=== PATIENT | female | born 1945 | race Caucasian/White ===

== ENCOUNTER 2016-06-19 14:09 | Inpatient (IN) | payer MEDICARE, OTHER ==
--- NOTE | ~2016-06-19 | OP ---
Record Of Operation [facility] [address] [place]. [address] NAME: SUZI STARKEY : 41 STATUS : ADM IN [facility]#: [id number] AGE: 70 ADM/REG DATE : 06/19/16 MR#: [id number] REPORT SERV DATE: 06/23/16 DICTATED BY: ÁNGEL PANTOJA DATE: 06/23/16 REPORT STATUS : Draft TRANSCRIBED BY: MODL DATE: 06/23/16 DATE OF PROCEDURE: 06/22/2016 PREOPERATIVE DIAGNOSIS: Right hip periprosthetic femur fracture below total hip arthroplasty. POSTOPERATIVE DIAGNOSIS: Right hip periprosthetic femur fracture below total hip arthroplasty. PROCEDURE: ORIF of right femur fracture. SURGEON: Lupe Pantoja M.D. MILLSTONE CLEANER: See chart. DESCRIPTION OF PROCEDURE: The patient was taken to the operating room and placed supine on the table in normal fashion without an incident. General anesthetic was induced per the anesthesiologist. The patient was carefully positioned, padded, prepped, and draped in normal sterile fashion. Sharp dissection was made through a straight lateral incision with electrocautery through the fat. The IT band was split in line with its fibers. The vastus was split in line with its fibers down the proximal and mid shaft of the femur to expose the fracture. It was defined in its extents proximally and distally. Five cables were placed staying directly on the bone proximally and these were provisionally tightened. A [place] long plate was chosen. Multiple screws were placed in the distal shaft while holding the fracture as anatomically reduced as possible with reduction forceps. These were placed in a standard fashion with drill depth gauge and self-tapping screw placement. All five cables were tightened, crimped, and cut short. Locking screws were placed in the short proximal holes. This appeared to give excellent fixation. They also packed after irrigation around the fracture with a deep mineralized-type bone matrix. The wound was then irrigated, closed, and dressed sterilely. The patient was awakened and taken to the postanesthesia care unit without incident. COMPLICATIONS: None. SPECIMENS: None. ESTIMATED BLOOD LOSS: [place] about to be less than a liter because her edematous fluid was so significant but hard to estimate. WTB/MODL Lupe Pantoja M.D. Record Of Operation [facility] [address] [place]. [address] NAME: SUZI STARKEY : 41 STATUS : ADM IN PAT#: [id number] AGE: 70 ADM/REG DATE : 06/19/16 MR#: [id number] REPORT SERV DATE: 06/23/16 DICTATED BY: ÁNGEL PANTOJA DATE: 06/23/16 REPORT STATUS : Draft TRANSCRIBED BY: MODL DATE: 06/23/16 / [id number] CC: Chelo Hodges M.D.
--- NOTE | ~2016-06-19 | CN ---
Consultation Report [facility] [address] [place]. [address] NAME: SUZI CHOW : 41 STATUS : ADM IN [facility]#: [id number] AGE: 70 ADM/REG DATE : 06/19/16 MR#: [id number] REPORT SERV DATE: 06/20/16 DICTATED BY: VERN CORDON DATE: 06/20/16 REPORT STATUS : Draft TRANSCRIBED BY: KELVIN DATE: 06/20/16 NEPHROLOGY CONSULTATION. DATE OF CONSULTATION: 06/20/2016 REASON FOR CONSULT: Acute kidney injury with volume overload. HISTORY OF PRESENT ILLNESS: Ms. Chow is a very pleasant 70-year-old white female, who has paroxysmal atrial fibrillation, sleep apnea, and a previous right hip replacement. She was admitted yesterday after a fall at home without syncope. She suffered another right hip fracture. CT scan of the head showed no acute intracranial process and chest x-ray has shown bilateral pulmonary edema. Her BNP was 1565 and today creatinine is 1.5. Surgery was canceled because of her volume overload. Cardiology has also been consulted today. PAST MEDICAL HISTORY: 1. Insulin-dependent diabetes mellitus. 2. Paroxysmal atrial fibrillation, on chronic anticoagulation with previous ablation and cardioversion attempts. 3. Echocardiogram, 02/2016, EF 55% with no documentation of right-sided pressures and moderate diastolic dysfunction. 4. Obstructive sleep apnea with reported history of interstitial lung disease. 5. Anemia. 6. History of previous right hip replacement. 7. History of T11 and T12 kyphoplasty in 02/2016. MEDICATIONS ON ADMISSION: Bumex 1 mg p.o. b.i.d., Lantus insulin 52 units at night, Prinivil 5 mg daily, metoprolol 25 mg daily, Prilosec, potassium chloride 20 mEq b.i.d., Rythmol 300 mg t.i.d., Zoloft 100 mg b.i.d., iron, and Coumadin. FAMILY HISTORY: Noncontributory to present admission. SOCIAL HISTORY: She is a nonsmoker, single, lives in [place], and is retired. REVIEW OF SYSTEMS: Significant for fall and hip fracture, paroxysmal atrial fibrillation. Avoids NSAIDs because of her chronic Coumadin. PHYSICAL EXAMINATION: VITAL SIGNS: Temperature 98.3, pulse 81, respirations 17, blood pressure 110/52, 92% sat on 3 L per nasal cannula. GENERAL: She is a very pleasant white female. Awake, alert, oriented, and cooperative with the exam. She is in no distress, lying flat in bed. LUNGS: She has diffuse bilateral crackles and rhonchi with mild dyspnea on conversation despite oxygen per nasal cannula. Consultation Report [address] [place]. [address] NAME: SUZI CHOW : 41 STATUS : ADM IN [facility]#: [id number] AGE: 70 ADM/REG DATE : 06/19/16 MR#: [id number] REPORT SERV DATE: 06/20/16 DICTATED BY: VERN CORDON DATE: 06/20/16 REPORT STATUS : Draft TRANSCRIBED BY: KELVIN DATE: 06/20/16 HEENT: Sclerae without icterus. Conjunctivae not injected. Oropharynx is clear. JVD 8-10 cm. HEART: She has regular rate and rhythm, 2/6 murmur. No rub. ABDOMEN: Obese, soft, nontender, nondistended. Bowel sounds present throughout. EXTREMITIES: 1+ pitting bilateral lower extremity edema. NEURO: Grossly nonfocal. SKIN: Shows no rash. She has a right hip fracture. Presently not in traction. : Deferred. She has clear yellow urine in the Watkins catheter. PSYCH: Mood and affect are appropriate. LABORATORY DATA: Sodium 139, potassium 5.1, bicarb 23, BUN 47, creatinine 1.5, GFR 35 mL/minute, calcium 8.6, hemoglobin 7.9, platelets 168,000, white count 8200. INR 1.2. BNP 1565. No urinalysis has been done since admission. ASSESSMENT AND PLAN: Ms. Chow appears to have acute kidney injury. Her creatinine was 0.9 as recently as 04/10/2016. She now has pulmonary edema; recurrent right hip fracture; anemia; paroxysmal atrial fibrillation, on chronic Coumadin; insulin-dependent diabetes mellitus; sleep apnea; and diastolic dysfunction. Unfortunately, her right-sided pressures are not documented. The reason for her acute kidney injury is unclear, but may be related to a component of renal hypoperfusion due to relative hypotension. She had a blood pressure of 86/42 at 11:55 p.m. last night. Her SEMAJ inhibitor is on hold. IV Bumex q.8 hours x3 and follow response. Avoid NSAID. Hopefully can be stable for right hip surgery in the next 24 hours. We will follow closely with you and appreciate consult. LEILANI/KELVIN Vern Cordon M.D. / [id number] CC: Chelo Hodges M.D.
--- NOTE | ~2016-06-19 | DS ---
Discharge Summary [facility] [id number] [place]. [address] NAME: SUZI STARKEY : 41 STATUS : DIS IN PAT#: [id number] AGE: 70 ADM/REG DATE : 06/19/16 MR#: [id number] REPORT SERV DATE: 06/26/16 DICTATED BY: ABDI BROWN DATE: 06/26/16 REPORT STATUS : Draft TRANSCRIBED BY: MODNikolai DATE: 06/26/16 ADMISSION DATE: 06/19/2016 DISCHARGE DATE: 06/26/2016 CONDITION ON DISCHARGE: Stable. DISPOSITION: Discharged to inpatient rehab. DIAGNOSES ON DISCHARGE: 1. Status post open reduction and internal fixation of fracture below total hip arthroplasty. The patient has done well postoperatively. Dr. Esparza has done the procedure of open reduction and internal fixation. 2. History of right total hip arthroplasty and the fracture happened below the hip arthroplasty this time, which was why patient needed open reduction and internal fixation of this fracture this time. 3. Other conditions that are chronic in this patient include paroxysmal atrial fibrillation or chronic atrial fibrillation for which patient is on Coumadin, chronic diastolic heart failure, obstructive sleep apnea, on CPAP, obesity hypoventilation syndrome, diabetes mellitus, hypertension which are all stable, chronic kidney disease, stage III which is also stable. The patient also has other issues like gout, peripheral neuropathy, and morbid obesity which are all stable at this time. BRIEF HOSPITAL COURSE: The patient is a 70-year-old female patient, who was admitted with fracture below the right total hip arthroplasty. This happened when she accidentally fell. The patient was not cleared for open reduction and internal fixation for at least two days because she was in pulmonary edema from volume overload, which was multifactorial. The patient has chronic diastolic heart failure and also has chronic kidney disease. Hence probably because of acute on chronic heart failure and also acute kidney injury, the patient was volume overloaded and was in pulmonary edema and hence was not cleared for surgery for two days. Cardiology was consulted, and Nephrology was consulted, and once her creatinine came down to her baseline and once her pulmonary edema resolved with diuretics which the automotive repair technician suggested, the patient did undergo open reduction and internal fixation and did really well. On the day of discharge, the patient is very stable; however Dr. Esparza, the orthopedic surgeon, has recommended that she not bear weight on her right lower extremity for at least three months because of her morbid obesity. This is because the patient has broken her right hip second time and any weightbearing before the next 10 to 12 weeks could result in fracture again. The patient understands this and hence the need for inpatient rehab. LABORATORY DATA: I have the following labs on this patient upon discharge. The most recent CBC on 06/26/2016 shows normal WBC, hemoglobin 8.7, hematocrit 27.9, platelet count of 152. INR is 1.4. Electrolyte profile shows that her sodium is 140, potassium 4.1, BUN 29, creatinine 0.8. Other tests and labs done on this patient include a brain natriuretic peptide which came Discharge Summary [address] [place]. [address] NAME: SUZI STARKEY : 41 STATUS : DIS IN PAT#: [id number] AGE: 70 ADM/REG DATE : 06/19/16 MR#: [id number] REPORT SERV DATE: 06/26/16 DICTATED BY: ABDI BROWN DATE: 06/26/16 REPORT STATUS : Draft TRANSCRIBED BY: KELVIN DATE: 06/26/16 back extremely elevated on 06/22/2016 at 1600. However, with diuresis, BNP has definitely come down. The patient also had a 2D echocardiogram, and the results will be dictated in the following paragraphs. The patient also had a brain CT scan without contrast when she came in because she fell. The brain CT scan essentially came back normal except for a scalp hematoma which was superficial. At this time, because the scalp hematoma was superficial and she did not have any active bleeding, it was decided that the patient to be restarted on the Coumadin to keep INR between 2 and 3, 48 hours after surgery. Hence, the patient has been restarted on the Coumadin. Her echocardiogram did show normal LV size with preserved ejection fraction of 55%, but the patient did have diastolic dysfunction which was moderate and also moderately enlarged right ventricle with right ventricular failure. The patient also has mild pulmonary hypertension which are all contributing to the volume overload. DISCHARGE MEDICATION: The patient's medications upon discharge include the following. The patient is being sent home on Coumadin. The patient will be given 10 mg of Coumadin today and then, Coumadin will be reduced to 5 mg tomorrow and the day after and then the patient can go back on her regular Coumadin dose of 4 mg Sunday, Sunday, , and Sunday. I have advised for PT/INR to be checked every day for this patient. She will also continue her Bumex, but she will be taking Bumex 1 mg p.o. b.i.d. instead of 2 mg in the morning and 1 mg at night. She will continue Toprol-XL at 25 mg once a day, lisinopril 5 mg p.o. daily, Lantus insulin 52 units subcutaneously at bedtime, Zoloft 100 mg p.o. b.i.d., potassium 20 mEq p.o. b.i.d., Prilosec 20 mg once a day, Rythmol 300 mg every eight hours, and also continue iron tablets like she has been on before. Hence, I am discharging this patient to inpatient rehab. I have spent about 40 minutes in coordinating discharge care of this patient. CAHRMAINE/KELVIN Abdi Brown M.D. / [id number] CC: Chelo Hodges M.D.
--- NOTE | ~2016-06-19 | PRECARD ---
H&P [facility] [address] [place]. [address] NAME: NORMA CHOW : 41 STATUS : ADM IN [facility]#: [id number] AGE: 70 ADM/REG DATE : 06/19/16 MR#: [id number] REPORT SERV DATE: 06/20/16 DICTATED BY: CURT GARZA DATE: 06/20/16 REPORT STATUS : Draft TRANSCRIBED BY: KELVIN DATE: 06/20/16 DATE OF ADMISSION: 06/19/2016 HISTORY OF PRESENT ILLNESS: Ms. Norma Chow is a 70-year-old woman referred by the hospitalist service, because of an elevated BNP. Ms. Chow has a history of hypertension. She also has diastolic dysfunction. Her echocardiogram in 02/2016 demonstrated left ventricular ejection fraction of 55%. She had mild aortic stenosis and trace mitral regurgitation. She had diastolic dysfunction by that study. She also has a history of atrial fibrillation. She underwent radiofrequency ablation in 2010. She was admitted for right hip pain, diagnosed with a right hip fracture. She reports walking in the house, falling, and hurting the right hip. The x-ray demonstrated a nondisplaced fracture of the proximal femur. She describes dyspnea with minimal activity for the last several months. She states, she has had no change in this dyspnea over several months. She has no orthopnea or PND. The symptoms have not changed over the last few weeks. She has no chest pain. No stroke or stroke-like symptoms. She has had no bleeding. MEDICINES UPON ADMISSION: Tylenol, Bumex, insulin, lisinopril, Toprol, Prilosec, potassium, Rythmol, Zoloft, iron, warfarin. FAMILY HISTORY: Noncontributory. REVIEW OF SYSTEMS: Complete review of systems was obtained, pertinent negative and unremarkable except as noted above and below. All systems addressed. PHYSICAL EXAMINATION: VITAL SIGNS: Blood pressure is about 100/50, heart rate about 80. GENERAL: She is comfortable, flat, in no distress, in very good spirits. HEENT: No xanthelasma; lips without cyanosis. LUNGS: Clear to auscultation, no wheezes, rales or rhonchi; good breath sounds. COR: No JVD or hepatojugular reflux, no murmurs, rubs or gallops, impulse mid clavicular line without carotid or abdominal bruits; normal S1 and S2. ABDOMEN: Bowel sounds positive, normal activity, without tenderness, masses or hepatosplenomegaly. EXTREMITIES: Have mild edema. SKIN: Normal turgor. Ms: Normal muscle strength, without kyphosis/scoliosis. NEURO/PSYCH: Alert and oriented times 4, no apparent anxiety or depression. LABORATORIES: BUN is 47, creatinine 1.48, BNP 1564. Chest x-ray consistent with pulmonary H&P [address] [address] NAME: NORMA CHOW : 41 STATUS : ADM IN [facility]#: [id number] AGE: 70 ADM/REG DATE : 06/19/16 MR#: [id number] REPORT SERV DATE: 06/20/16 DICTATED BY: CURT GARZA DATE: 06/20/16 REPORT STATUS : Draft TRANSCRIBED BY: KELVIN DATE: 06/20/16 congestion. Echo in 2016 demonstrated EF of 55%. PET perfusion study in 09/2015 demonstrated no ischemia. EKG, probable sinus rhythm. Telemetry, sinus rhythm. ASSESSMENT: Ms. Chow is a 70-year-old woman with diastolic dysfunction by echocardiogram. She has normal left ventricle systolic function. She had chest x-ray that suggest pulmonary edema. Her BNP is elevated at 1564. PLAN: 1. Diuresis now, this will certainly help her rehabilitation postoperatively. 2. The hospitalist service has already consulted Nephrology as well. They also ordered a stat echocardiogram. Vitamin K was ordered for her INR preoperatively. HEMANTH/KELVIN Curt Garza M.D. / [id number] CC: Chelo Hodges M.D.
--- NOTE | ~2016-06-19 | HP ---
History And Physical [address] [place]. [address] NAME: SUZI STARKEY : 41 STATUS : ADM IN [facility]#: [id number] AGE: 70 ADM/REG DATE : 06/19/16 MR#: [id number] REPORT SERV DATE: 06/20/16 DICTATED BY: ÁNGEL PANTOJA DATE: 06/20/16 REPORT STATUS : Draft TRANSCRIBED BY: MODNikolai DATE: 06/20/16 DATE OF ADMISSION: 06/19/2016 CHIEF COMPLAINT: Right hip pain. HISTORY: This is a 70-year-old female, approximately six years status post right total hip arthroplasty by Dr. Mcgee, film injury to her right hip and has scalp hematoma. This has been worked up with a CT scan to make sure there is nothing intracranially. She denies any pain or injury elsewhere. She does have significant pain in her right thigh however. ALLERGIES: NONE. MEDICATIONS: See chart. PAST MEDICAL HISTORY: Dysrhythmia, glaucoma, presbyopia, atrial fibrillation, hypertension, sleep apnea, GERD, insulin-dependent diabetes, anxiety, and morbid obesity. PAST SURGICAL HISTORY: Cholecystectomy, hysterectomy, left total knee in May 2007, tubal ligation, vaginal biopsy in 2006, back surgery in 2009, cardiac ablation in 2010, right hip replacement by Dr. Mcgee some years ago. SOCIAL HISTORY: Quit tobacco in 1981. No alcohol or illicit drug use. FAMILY HISTORY: No anesthetic complications. REVIEW OF SYSTEMS: As above. PHYSICAL EXAMINATION: GENERAL: She is alert and oriented x3, in no apparent distress. HEENT: Atraumatic, normocephalic. She does have a scalp hematoma as noted. NECK: Supple. CHEST: Symmetric, nontender. LUNGS: Per Medicine evaluation. CV: Regular. ABDOMEN: Soft. No mass. EXTREMITIES: Both upper extremities and left lower extremity without acute trauma. Right lower extremity compartment supple. 2+ pulses. NEURO: Sensorimotor without deficit. X-RAY: Reveals a spiral periprosthetic femur fracture around her total hip. ASSESSMENT: Spiral periprosthetic femur fracture around total hip done several years ago by Dr. Mcgee. Multiple medical issues including pulmonary edema, congestive heart failure, etc. History And Physical [address] [place]. [address] NAME: SUZI STARKEY : 41 STATUS : ADM IN PAT#: [id number] AGE: 70 ADM/REG DATE : 06/19/16 MR#: [id number] REPORT SERV DATE: 06/20/16 DICTATED BY: ÁNGEL PANTOJA DATE: 06/20/16 REPORT STATUS : Draft TRANSCRIBED BY: MODL DATE: 06/20/16 PLAN: I have discussed her case with Jaqueline Whatley, the Orthopedic [employer] as well as the hospitalist regarding the medical optimization and clearance for surgery. I have discussed this with the patient and we will proceed when this is okay with all consultants. WTB/MODNikolai Lupe Pantoja M.D. / [id number] CC: Chelo Hodges M.D.
--- NOTE | ~2016-06-19 | HP ---
History And Physical [address] [place]. [address] NAME: SUZI STARKEY : 41 STATUS : ADM IN [facility]#: [id number] AGE: 70 ADM/REG DATE : 06/19/16 MR#: [id number] REPORT SERV DATE: 06/19/16 DICTATED BY: ORTIZ ALMARAZ DATE: 06/19/16 REPORT STATUS : Draft TRANSCRIBED BY: KELVIN DATE: 06/19/16 DATE OF ADMISSION: 06/19/2016 CHIEF COMPLAINT: Fall. HISTORY OF PRESENT ILLNESS: The patient is a 70-year-old white female with multitude of medical problems, which we referenced below. She states she got up today to go to the bathroom. She did not use a walker and she got caught up in a throw rug on the floor by her bed. She fell and injured her right hip. She did not lose consciousness. She did not really feel particularly poor prior. She has had some intermittent leg swelling over the last several weeks and also some intermittent dyspnea, but she is not currently dyspneic. She denies chest pain, denies fever. Most her complaints today revolve around her right hip pain. PAST MEDICAL HISTORY: 1. Atrial fibrillation, on chronic warfarin. 2. Diabetes mellitus. 3. Hypertension. 4. Diastolic heart failure. 5. Iron deficiency anemia. 6. MATILDA, on CPAP. 7. Morbid obesity. 8. GERD. 9. Erosive esophagitis. 10.Recurrent urinary tract infections. 11.Interstitial lung disease. 12.Panic attacks. 13.Gout. 14.Peripheral neuropathy. 15.Erosive gastritis and gastric erosions. 16.Morbid obesity. 17.Frequent falls. SURGICAL HISTORY: 1. She has had a trimalleolar fracture repair of her ankle on the right. On 10/22, she has had right-sided hip replacement. 2. Cardiac ablation. 3. Hypoplastic L1. PAST SURGICAL HISTORY: 1. Left knee surgery. 2. Cholecystectomy. 3. Hysterectomy. 4. Carpal tunnel release. ALLERGIES: NO KNOWN DRUG ALLERGIES. History And Physical [address] [place]. [address] NAME: SUZI STARKEY : 41 STATUS : ADM IN [facility]#: [id number] AGE: 70 ADM/REG DATE : 06/19/16 MR#: [id number] REPORT SERV DATE: 06/19/16 DICTATED BY: ORTIZ ALMARAZ DATE: 06/19/16 REPORT STATUS : Draft TRANSCRIBED BY: KELVIN DATE: 06/19/16 SOCIAL HISTORY: She lives alone. She uses a walker. She drives. She used to smoke two packs per day, but quit about 30 years ago. She does not use alcohol. FAMILY HISTORY: Positive for heart disease, breast cancer, as well as ovarian cancer and melanoma. HOME MEDICATIONS: Include the followin. Tylenol p.r.n. 2. Bumex 1 mg twice daily. 3. Lantus 52 units at bedtime. 4. Prinivil 5 daily. 5. Toprol-XL 25 daily. 6. Prilosec 20 daily. 7. Klor-Con daily. 8. Rythmol 300 every eight hours. 9. Zoloft 100 twice daily. 10.EZ-Iron daily. 11.Coumadin 4 mg on Sunday, Sunday, , Sunday, and 4.5 on the rest. REVIEW OF SYSTEMS: A full ten-point review of systems obtained. Pertinent positives already mentioned in the HPI. PHYSICAL EXAMINATION: VITAL SIGNS: BP 100/26, sats 96% on 4 L. temperature 98.0, pulse 71, respiratory rate 17. GENERAL: Morbidly obese white female. HEENT: Normocephalic, atraumatic. Throat is clear. NECK: Supple. HEART: Regular rate and rhythm. LUNGS: Grossly clear anteriorly. ABDOMEN: Soft, nontender, nondistended. EXTREMITIES: Warm and dry. Skin is intact. She has some venous stasis changes about her anterior tibia. She has 2+ pulses at the feet and she can wiggle her feet. I did move her right leg as it is quite painful and I did roll her over as she is also a lot of pain in that right hip. LABORATORY AND X-RAY: Her EKG is pending. Hip film shows a right nondisplaced fracture of the proximal femur around the prosthesis. Chest x-ray shows some pulmonary vascular congestion and cardiomegaly. CBC: H and H are 7.6 and 25, white count 8.9, and platelets are 179. INR is 3.4. Sodium 141, potassium 5.5, chloride 107. CO2 25. BUN and creatinine 44 and 1.47. Glucose is 114. BNP is 1564. ASSESSMENT/PLAN: 1. Right-sided hip fracture after a fall. We will consult Dr. Mcgee to see. We will make her n.p.o. after midnight. We will try to correct some underlying metabolic History And Physical [address] [place]. [address] NAME: SUZI STARKEY : 41 STATUS : ADM IN PAT#: [id number] AGE: 70 ADM/REG DATE : 06/19/16 MR#: [id number] REPORT SERV DATE: 06/19/16 DICTATED BY: ORTIZ ALMARAZ DATE: 06/19/16 REPORT STATUS : Draft TRANSCRIBED BY: KELVIN DATE: 06/19/16 issues. 2. Acute on chronic anemia with hemoglobin 7.8. I think given that she is going to need surgery on her hip, I am going to go ahead and transfuse her. We will follow the first unit with 20 mg of IV Lasix, the second unit with 40 mg of IV Lasix to assure that she does not get further volume overloaded. We will follow up with hemoglobin in the morning to see how she has done. 3. Acute kidney injury with some component of chronic kidney disease. We will check urinalysis with micro and culture. This has not been done. I am going to hold her angiotensin-converting enzyme inhibitor and renally dose any drugs. I am not sure exactly what precipitated her kidney injury. She looks like she is volume overloaded today. We will simply follow her up in the morning with some labs. 4. Atrial fibrillation, on chronic warfarin. I am going to have to reverse her Coumadin. We will give her 10 of IV vitamin K, check her PT/INR in the morning. If she needs fresh frozen plasma, we can get at that time just prior to surgery, but we would like to avoid additional volume if we can. 5. Diabetes mellitus. We will add level 2 sliding scale to her regimen. We will continue her Levemir. 6. Hypertension. Continue home medications. 7. Obstructive sleep apnea. I have instructed the son to bring her continuous positive airway pressure machine to the hospital. She can wear this while in the hospital. 8. Interstitial lung disease with chronic hypoxic respiratory failure. Follow. 9. Diastolic dysfunction and congestive heart failure. She is going to get some Lasix today and she got a dose of Lasix in the Emergency Room. We will see what her volume status looks like in the morning. 10.History of gout. 11.Deep venous thrombosis prophylaxis. She is already fully anticoagulated, but she will need some form of prophylaxis once her INR is now. 12.Disposition, pending above. SURESH/KELVIN Ortiz Almaraz M.D. / [id number] CC: Chelo Driscoll M.D.
[2016-06-19 14:00] LABS: BASOPHILS 0.1 %; BASOPHILS ABSOLUTE 0.01 10/3/uL (0.0-0.16); EOSINOPHILS 0.1 %; EOSINOPHILS ABSOLUTE 0.01 10/3/uL (0.0-0.53); HEMOGLOBIN 7.6 g/dL (12.0-16.0); IMMATURE GRANULOCYTES 0.3 %; IMMATURE GRANULOCYTES ABSOLUTE 0.03 10/3/uL (0.0-0.11); LYMPHOCYTES 4.3 %; LYMPHOCYTES ABSOLUTE 0.38 10/3/uL (0.67-4.30); MEAN CORPUSCULAR HEMOGLOB 26.4 pg (26.0-34.0); MEAN PLATELET VOLUME 7.9 fL (9.2-13.0); MONOCYTES 11.5 %; MONOCYTES ABSOLUTE 1.03 10/3/uL (0.21-1.20); NEUTROPHILS 83.7 %; NEUTROPHILS ABSOLUTE 7.46 10/3/uL (2.02-8.40); RBC DISTRIBUTION WIDTH 18.5 % (12.0-16.0); RED CELL COUNT 2.88 10/6/uL (4.0-5.6); WHITE BLOOD CELLS 8.9 10/3/uL (4.5-10.5)
[2016-06-19 14:01] LABS: HEMATOCRIT 25.5 % (36.0-48.0); MANUAL DIFF NO %; MEAN CORPUS HGB CONC 29.8 g/dL (32.0-36.0); MEAN CORPUSCULAR VOLUME 88.5 fL (80-100); PLATELET COUNT 179 10/3/uL (150-400)
[2016-06-19 14:08] LABS: INTERNATIONAL NORMAL RATI 3.4 UNITS (-); PARTIAL THROMBO TIME 40.2 SEC (22.5-37.2)
[2016-06-19 14:09] LABS: PROTIME (NOT ORD) 34.1 SEC (12.0-14.5)
[~2016-06-19 14:09] MED LIST: ACET500CAP PO; ACTOS15 PO; ADVAIR100 INH; ADVAIR250 INH; BACTRONASA NAS; BUM1 PO; C1 PO; C25 PO; C5 PO; CALTRAT600 PO; CEFT5 PO; CIP5 PO; CORDARONE PO; COUMADIN; COUMADIN4 MG PO; EASY IRON PO; FESO4 PO; GLUCOTRO10 PO; GLUCOTROL5 PO; HCTZ12.5 PO; HCTZ25B PO; HYDROCHLOROT25 MG PO; IMOD PO; KDUR20 PO; KLONO5 PO; KLOR-CON M2020 MEQ PO; L20 PO; L40 PO; LANTUS SC; LANTUSCART SC; LORTAB 5 PO; MAGOX4 PO; METFORMIN HCL; MICRO-K8 MEQ PO; MIRALAXPKT PO; OTC IRON TABLET PO; PCET PO; PREV30 PO; PRILO PO; PRILOSEC OTC20 MG PO; PRIN10 PO; PRIN20 PO; PROAIR HFA INH; RYTHMOL225 MG PO; RYTHMOL300 MG PO; SUCR PO; TOPXL25 PO; TOPXL50 PO; VITAMIN D1000 UNI1 PO; XALAT OPH; ZESTRIL10 MG PO; ZESTRIL20 MG PO; ZESTRIL30 MG PO; ZOL100 PO; ZOL50 PO; [UNRECOGNIZED DRUG - REMARK]
[2016-06-19 14:14] LABS: BUN (BLOOD UREA NITROGEN) 44 MG/DL (6-23); CALCIUM, SERUM 9.2 MG/DL (8.5-10.4); CHLORIDE, SERUM 107 MMOL/L (96-112); CO2 (CARBON DIOXIDE) 25 MMOL/L (24-34); CREATININE 1.47 MG/DL (0.55-1.02); GFR AFRICAN AMERICAN 41 ML/MIN (>=60); GFR NON AFRICAN AMERICAN 35 ML/MIN (>=60); GLUCOSE, SERUM 114 MG/DL (60-99); POTASSIUM, SERUM 5.5 MMOL/L (3.5-5.3); SODIUM, SERUM 141 MMOL/L (135-148)
[2016-06-20 07:10] LABS: BASOPHILS 0.2 %; BASOPHILS ABSOLUTE 0.02 10/3/uL (0.0-0.16); EOSINOPHILS 0.7 %; EOSINOPHILS ABSOLUTE 0.06 10/3/uL (0.0-0.53); HEMATOCRIT 25.7 % (36.0-48.0); HEMOGLOBIN 7.9 g/dL (12.0-16.0); IMMATURE GRANULOCYTES 0.5 %; IMMATURE GRANULOCYTES ABSOLUTE 0.04 10/3/uL (0.0-0.11); LYMPHOCYTES 7.8 %; LYMPHOCYTES ABSOLUTE 0.64 10/3/uL (0.67-4.30); MEAN CORPUS HGB CONC 30.7 g/dL (32.0-36.0); MEAN CORPUSCULAR HEMOGLOB 26.7 pg (26.0-34.0); MEAN CORPUSCULAR VOLUME 86.8 fL (80-100); MEAN PLATELET VOLUME 8.8 fL (9.2-13.0); MONOCYTES ABSOLUTE 1.23 10/3/uL (0.21-1.20); NEUTROPHILS 75.8 %; NEUTROPHILS ABSOLUTE 6.21 10/3/uL (2.02-8.40); PLATELET COUNT 168 10/3/uL (150-400); RBC DISTRIBUTION WIDTH 17.6 % (12.0-16.0); RED CELL COUNT 2.96 10/6/uL (4.0-5.6); WHITE BLOOD CELLS 8.2 10/3/uL (4.5-10.5)
[2016-06-20 07:11] LABS: MANUAL DIFF NO %
[2016-06-20 08:36] LABS: BUN (BLOOD UREA NITROGEN) 47 MG/DL (6-23); CALCIUM, SERUM 8.6 MG/DL (8.5-10.4); CHLORIDE, SERUM 107 MMOL/L (96-112); CO2 (CARBON DIOXIDE) 23 MMOL/L (24-34); CREATININE 1.48 MG/DL (0.55-1.02); GFR AFRICAN AMERICAN 41 ML/MIN (>=60); GFR NON AFRICAN AMERICAN 35 ML/MIN (>=60); GLUCOSE, SERUM 74 MG/DL (60-99); POTASSIUM, SERUM 5.1 MMOL/L (3.5-5.3); SODIUM, SERUM 139 MMOL/L (135-148)
[2016-06-20 09:43] LABS: INTERNATIONAL NORMAL RATI 1.9 UNITS (-)
[2016-06-20 09:44] LABS: PROTIME (NOT ORD) 21.6 SEC (12.0-14.5)
[2016-06-20 17:14] LABS: ASCORBIC ACID (UR NOT ORDER) NEG (NEG); BILIRUBIN, URINE NEGATIVE (NEG); KETONE, URINE NEGATIVE (NEG); LEUKOCYTE ESTERASE(NOT OR SMALL (NEG); WBC (NOT ORDERED) (RFLEX) 34 (0-5)
[2016-06-21 05:16] LABS: BASOPHILS 0.1 %; BASOPHILS ABSOLUTE 0.01 10/3/uL (0.0-0.16); EOSINOPHILS 0.8 %; EOSINOPHILS ABSOLUTE 0.06 10/3/uL (0.0-0.53); HEMATOCRIT 25.6 % (36.0-48.0); HEMOGLOBIN 7.9 g/dL (12.0-16.0); IMMATURE GRANULOCYTES 0.6 %; IMMATURE GRANULOCYTES ABSOLUTE 0.05 10/3/uL (0.0-0.11); LYMPHOCYTES 7.3 %; LYMPHOCYTES ABSOLUTE 0.57 10/3/uL (0.67-4.30); MANUAL DIFF NO %; MEAN CORPUS HGB CONC 30.9 g/dL (32.0-36.0); MEAN CORPUSCULAR HEMOGLOB 26.6 pg (26.0-34.0); MEAN CORPUSCULAR VOLUME 86.2 fL (80-100); MEAN PLATELET VOLUME 8.5 fL (9.2-13.0); MONOCYTES 17.5 %; MONOCYTES ABSOLUTE 1.37 10/3/uL (0.21-1.20); NEUTROPHILS 73.7 %; NEUTROPHILS ABSOLUTE 5.78 10/3/uL (2.02-8.40); PLATELET COUNT 169 10/3/uL (150-400); RBC DISTRIBUTION WIDTH 17.9 % (12.0-16.0); RED CELL COUNT 2.97 10/6/uL (4.0-5.6); WHITE BLOOD CELLS 7.8 10/3/uL (4.5-10.5)
[2016-06-21 05:21] LABS: INTERNATIONAL NORMAL RATI 1.5 UNITS (-); PROTIME (NOT ORD) 18.4 SEC (12.0-14.5)
[2016-06-21 05:34] LABS: CALCIUM, SERUM 8.5 MG/DL (8.5-10.4); CHLORIDE, SERUM 105 MMOL/L (96-112); CO2 (CARBON DIOXIDE) 23 MMOL/L (24-34); CREATININE 1.24 MG/DL (0.55-1.02); GFR AFRICAN AMERICAN 50 ML/MIN (>=60); GFR NON AFRICAN AMERICAN 43 ML/MIN (>=60); POTASSIUM, SERUM 4.3 MMOL/L (3.5-5.3); SODIUM, SERUM 139 MMOL/L (135-148)
[2016-06-21 05:39] LABS: BUN (BLOOD UREA NITROGEN) 43 MG/DL (6-23); GLUCOSE, SERUM 104 MG/DL (60-99)
[2016-06-22 05:20] LABS: BASOPHILS 0.1 %; BASOPHILS ABSOLUTE 0.01 10/3/uL (0.0-0.16); EOSINOPHILS ABSOLUTE 0.08 10/3/uL (0.0-0.53); HEMATOCRIT 25.3 % (36.0-48.0); HEMOGLOBIN 7.6 g/dL (12.0-16.0); IMMATURE GRANULOCYTES 0.7 %; IMMATURE GRANULOCYTES ABSOLUTE 0.06 10/3/uL (0.0-0.11); LYMPHOCYTES 6.9 %; LYMPHOCYTES ABSOLUTE 0.57 10/3/uL (0.67-4.30); MEAN CORPUSCULAR HEMOGLOB 26.4 pg (26.0-34.0); MEAN CORPUSCULAR VOLUME 87.8 fL (80-100); MEAN PLATELET VOLUME 8.3 fL (9.2-13.0); MONOCYTES 17.4 %; MONOCYTES ABSOLUTE 1.44 10/3/uL (0.21-1.20); NEUTROPHILS 73.9 %; NEUTROPHILS ABSOLUTE 6.11 10/3/uL (2.02-8.40); PLATELET COUNT 167 10/3/uL (150-400); RBC DISTRIBUTION WIDTH 17.9 % (12.0-16.0); RED CELL COUNT 2.88 10/6/uL (4.0-5.6); WHITE BLOOD CELLS 8.3 10/3/uL (4.5-10.5)
[2016-06-22 05:21] LABS: INTERNATIONAL NORMAL RATI 1.4 UNITS (-); PROTIME (NOT ORD) 17.4 SEC (12.0-14.5)
[2016-06-22 05:22] LABS: MANUAL DIFF NO %
[2016-06-22 05:29] LABS: BUN (BLOOD UREA NITROGEN) 31 MG/DL (6-23); CALCIUM, SERUM 8.3 MG/DL (8.5-10.4); CHLORIDE, SERUM 105 MMOL/L (96-112); CO2 (CARBON DIOXIDE) 26 MMOL/L (24-34); CREATININE 1.06 MG/DL (0.55-1.02); GFR AFRICAN AMERICAN 61 ML/MIN (>=60); GFR NON AFRICAN AMERICAN 52 ML/MIN (>=60); GLUCOSE, SERUM 191 MG/DL (60-99); POTASSIUM, SERUM 3.6 MMOL/L (3.5-5.3); SODIUM, SERUM 140 MMOL/L (135-148)
[2016-06-22 20:29] LABS: HEMATOCRIT 21.6 % (36.0-48.0); HEMOGLOBIN 6.7 g/dL (12.0-16.0)
[2016-06-23 06:41] LABS: INTERNATIONAL NORMAL RATI 1.5 UNITS (-); PROTIME (NOT ORD) 17.9 SEC (12.0-14.5)
[2016-06-23 06:46] LABS: HEMATOCRIT 28.5 % (36.0-48.0); HEMOGLOBIN 8.9 g/dL (12.0-16.0)
[2016-06-23 06:49] LABS: CALCIUM, SERUM 8.5 MG/DL (8.5-10.4); CHLORIDE, SERUM 108 MMOL/L (96-112); CO2 (CARBON DIOXIDE) 25 MMOL/L (24-34); CREATININE 0.87 MG/DL (0.55-1.02); GFR AFRICAN AMERICAN 77 ML/MIN (>=60); GFR NON AFRICAN AMERICAN 67 ML/MIN (>=60); GLUCOSE, SERUM 190 MG/DL (60-99); SODIUM, SERUM 144 MMOL/L (135-148)
[2016-06-23 06:50] LABS: BUN (BLOOD UREA NITROGEN) 26 MG/DL (6-23)
[2016-06-23 09:56] LABS: BASOPHILS 0 %; EOSINOPHILS 0 %; IMMATURE GRANULOCYTES 0.5 %; IMMATURE GRANULOCYTES ABSOLUTE 0.04 10/3/uL (0.0-0.11); LYMPHOCYTES 4.3 %; LYMPHOCYTES ABSOLUTE 0.35 10/3/uL (0.67-4.30); MANUAL DIFF NO %; MEAN CORPUS HGB CONC 31.4 g/dL (32.0-36.0); MEAN CORPUSCULAR HEMOGLOB 27.6 pg (26.0-34.0); MEAN CORPUSCULAR VOLUME 87.9 fL (80-100); MEAN PLATELET VOLUME 8.6 fL (9.2-13.0); MONOCYTES 12.3 %; NEUTROPHILS 82.9 %; NEUTROPHILS ABSOLUTE 6.74 10/3/uL (2.02-8.40); PLATELET COUNT 147 10/3/uL (150-400); RBC DISTRIBUTION WIDTH 16.8 % (12.0-16.0); RED CELL COUNT 3.22 10/6/uL (4.0-5.6); WHITE BLOOD CELLS 8.1 10/3/uL (4.5-10.5)
[2016-06-24 05:58] LABS: BUN (BLOOD UREA NITROGEN) 29 MG/DL (6-23); CALCIUM, SERUM 8.8 MG/DL (8.5-10.4); CHLORIDE, SERUM 108 MMOL/L (96-112); CO2 (CARBON DIOXIDE) 26 MMOL/L (24-34); CREATININE 1.04 MG/DL (0.55-1.02); GFR AFRICAN AMERICAN 62 ML/MIN (>=60); GFR NON AFRICAN AMERICAN 54 ML/MIN (>=60); GLUCOSE, SERUM 217 MG/DL (60-99); POTASSIUM, SERUM 4.3 MMOL/L (3.5-5.3); SODIUM, SERUM 143 MMOL/L (135-148)
[2016-06-24 06:05] LABS: INTERNATIONAL NORMAL RATI 1.4 UNITS (-); PROTIME (NOT ORD) 16.8 SEC (12.0-14.5)
[2016-06-24 06:14] LABS: BASOPHILS 0.2 %; BASOPHILS ABSOLUTE 0.02 10/3/uL (0.0-0.16); EOSINOPHILS 0.2 %; EOSINOPHILS ABSOLUTE 0.02 10/3/uL (0.0-0.53); HEMATOCRIT 27.6 % (36.0-48.0); HEMOGLOBIN 8.8 g/dL (12.0-16.0); IMMATURE GRANULOCYTES 0.5 %; IMMATURE GRANULOCYTES ABSOLUTE 0.04 10/3/uL (0.0-0.11); LYMPHOCYTES 5.3 %; LYMPHOCYTES ABSOLUTE 0.45 10/3/uL (0.67-4.30); MEAN CORPUS HGB CONC 31.9 g/dL (32.0-36.0); MEAN CORPUSCULAR HEMOGLOB 28.4 pg (26.0-34.0); MEAN PLATELET VOLUME 8.9 fL (9.2-13.0); MONOCYTES ABSOLUTE 1.02 10/3/uL (0.21-1.20); NEUTROPHILS 81.8 %; NEUTROPHILS ABSOLUTE 6.95 10/3/uL (2.02-8.40); PLATELET COUNT 149 10/3/uL (150-400); RBC DISTRIBUTION WIDTH 17.1 % (12.0-16.0); WHITE BLOOD CELLS 8.5 10/3/uL (4.5-10.5)
[2016-06-24 06:15] LABS: MANUAL DIFF NO %
[2016-06-25 06:23] LABS: HEMATOCRIT 28.7 % (36.0-48.0); HEMOGLOBIN 9.1 g/dL (12.0-16.0)
[2016-06-25 06:30] LABS: INTERNATIONAL NORMAL RATI 1.3 UNITS (-); PROTIME (NOT ORD) 16.3 SEC (12.0-14.5)
[2016-06-25 06:39] LABS: BUN (BLOOD UREA NITROGEN) 35 MG/DL (6-23); CALCIUM, SERUM 9.1 MG/DL (8.5-10.4); CHLORIDE, SERUM 104 MMOL/L (96-112); CO2 (CARBON DIOXIDE) 24 MMOL/L (24-34); CREATININE 0.96 MG/DL (0.55-1.02); GFR AFRICAN AMERICAN 68 ML/MIN (>=60); GFR NON AFRICAN AMERICAN 59 ML/MIN (>=60); GLUCOSE, SERUM 148 MG/DL (60-99); POTASSIUM, SERUM 4.3 MMOL/L (3.5-5.3); SODIUM, SERUM 139 MMOL/L (135-148)
[2016-06-26 06:10] LABS: BASOPHILS 0.1 %; BASOPHILS ABSOLUTE 0.01 10/3/uL (0.0-0.16); EOSINOPHILS 1.6 %; EOSINOPHILS ABSOLUTE 0.11 10/3/uL (0.0-0.53); HEMATOCRIT 27.9 % (36.0-48.0); HEMOGLOBIN 8.7 g/dL (12.0-16.0); IMMATURE GRANULOCYTES 0.7 %; IMMATURE GRANULOCYTES ABSOLUTE 0.05 10/3/uL (0.0-0.11); LYMPHOCYTES 6.5 %; LYMPHOCYTES ABSOLUTE 0.45 10/3/uL (0.67-4.30); MEAN CORPUS HGB CONC 31.2 g/dL (32.0-36.0); MEAN CORPUSCULAR HEMOGLOB 28.2 pg (26.0-34.0); MEAN CORPUSCULAR VOLUME 90.6 fL (80-100); MEAN PLATELET VOLUME 8.8 fL (9.2-13.0); MONOCYTES 12.1 %; MONOCYTES ABSOLUTE 0.84 10/3/uL (0.21-1.20); NEUTROPHILS ABSOLUTE 5.51 10/3/uL (2.02-8.40); PLATELET COUNT 152 10/3/uL (150-400); RBC DISTRIBUTION WIDTH 17.8 % (12.0-16.0); RED CELL COUNT 3.08 10/6/uL (4.0-5.6)
[2016-06-26 06:11] LABS: MANUAL DIFF NO %
[2016-06-26 06:21] LABS: INTERNATIONAL NORMAL RATI 1.4 UNITS (-); PROTIME (NOT ORD) 16.7 SEC (12.0-14.5)
[2016-06-26 06:23] LABS: CALCIUM, SERUM 8.7 MG/DL (8.5-10.4); CHLORIDE, SERUM 102 MMOL/L (96-112); CREATININE 0.88 MG/DL (0.55-1.02); GFR AFRICAN AMERICAN 76 ML/MIN (>=60); GFR NON AFRICAN AMERICAN 66 ML/MIN (>=60); POTASSIUM, SERUM 4.1 MMOL/L (3.5-5.3); SODIUM, SERUM 140 MMOL/L (135-148)
[2016-06-26 06:26] LABS: BUN (BLOOD UREA NITROGEN) 29 MG/DL (6-23); CO2 (CARBON DIOXIDE) 30 MMOL/L (24-34); GLUCOSE, SERUM 195 MG/DL (60-99)
[2016-06-26 11:13] LABS: INTERNATIONAL NORMAL RATI 1.4 UNITS (-); PROTIME (NOT ORD) 16.9 SEC (12.0-14.5)
== END 2016-06-26 14:03 | DRG 480 ==
LOC: ER 14:09 → 1SO 14:27
PROVIDERS: Emergency Medicine; Internal Medicine; Specialist
PROC: 30233N1 Transfusion of Nonautologous Red Blood Cells into Peripheral Vein, Percutaneous Approach (ICD-10-PCS; 2016-06-20)
PROC: 0QS604Z Reposition Right Upper Femur with Internal Fixation Device, Open Approach (ICD-10-PCS; principal; 2016-06-22 15:45)
DX: M97.01XA Periprosthetic fracture around internal prosthetic right hip joint, initial encounter (principal); I50.33 Acute on chronic diastolic (congestive) heart failure; N17.9 Acute kidney failure, unspecified; D68.32 Hemorrhagic disorder due to extrinsic circulating anticoagulants; I13.0 Hypertensive heart and chronic kidney disease with heart failure and stage 1 through stage 4 chronic kidney disease, or unspecified chronic kidney disease; Z68.42 Body mass index [BMI] 45.0-49.9, adult; E66.2 Morbid (severe) obesity with alveolar hypoventilation; E11.22 Type 2 diabetes mellitus with diabetic chronic kidney disease; N18.3 Chronic kidney disease, stage 3 (moderate); Z99.81 Dependence on supplemental oxygen; D63.1 Anemia in chronic kidney disease; S00.03XA Contusion of scalp, initial encounter; E87.70 Fluid overload, unspecified; K21.9 Gastro-esophageal reflux disease without esophagitis; Y83.8 Other surgical procedures as the cause of abnormal reaction of the patient, or of later complication, without mention of misadventure at the time of the procedure; H40.9 Unspecified glaucoma; T45.515A Adverse effect of anticoagulants, initial encounter; I48.0 Paroxysmal atrial fibrillation; I73.9 Peripheral vascular disease, unspecified; F41.8 Other specified anxiety disorders; J44.9 Chronic obstructive pulmonary disease, unspecified; J45.909 Unspecified asthma, uncomplicated; W18.30XA Fall on same level, unspecified, initial encounter; Z87.891 Personal history of nicotine dependence; Z79.4 Long term (current) use of insulin; Z79.01 Long term (current) use of anticoagulants; Z79.899 Other long term (current) drug therapy; Z96.641 Presence of right artificial hip joint
CPT/HCPCS: 36415; 70450; 71010; 72170; 73502-RT; 80048; 81001; 82962; 83880; 85014; 85018; 85025; 85610; 85730; 86850; 86900; 86901; 86920; 87086; 93005; 94640; 96374; 97110-GO; 97110-GP; 97162-GP; 97166-GO; 97530-GP; 99285; A9270-GY; C1713; C8929; G8978-CM-GP; G8979-CM-GP; J0690; J1610; J1885; J1940; J2250; J2274; J2405; J2710; J2795; J3010; J3430; P9016; P9045; Q9957

== ENCOUNTER 2016-06-30 22:27 | Inpatient (IN) | payer MEDICARE, OTHER ==
--- NOTE | ~2016-06-30 | CN ---
Consultation Report [address] [place]. [address] NAME: SUZI CHOW : 41 STATUS : ADM IN PAT#: [id number] AGE: 70 ADM/REG DATE : 06/30/16 MR#: [id number] REPORT SERV DATE: 07/01/16 DICTATED BY: DATE: REPORT STATUS : Draft TRANSCRIBED BY: MODL DATE: 07/01/16 CARDIOLOGY CONSULT DATE OF CONSULTATION: 07/01/2016 CHIEF COMPLAINT/REASON FOR CONSULTATION: Pulmonary edema. PRIMARY JEWEL DIAMETER GAUGER: Talat Lazo M.D. HISTORY OF PRESENT ILLNESS: Ms Chow is a 70-year-old female that was just released from the hospital earlier this month. She had a hip fracture and open reduction internal fixation of her right hip. She has a known history of underlying diastolic heart failure and presented the evening prior to this consult with increasing dyspnea, shortness of breath, altered mental status, and decreased oxygen saturation. Chest x-ray demonstrated bilateral pulmonary edema. The patient overnight also went into atrial fibrillation with rapid ventricular response with heart rates in the low 120s. She did not receive her regularly scheduled propafenone and metoprolol due to inability to take oral medication. She was recently seen by my colleague, Dr. Garza on 06/23/2016 for elevated BNP and diuresis was recommended at that time. PAST MEDICAL HISTORY: 1. Open reduction internal fixation, right hip earlier this month. 2. Persistent atrial fibrillation. 3. Obstructive sleep apnea. 4. Obesity-hypoventilation syndrome. 5. Morbid obesity. 6. Diabetes. 7. Hypertension. 8. Chronic kidney disease, stage 3. 9. Peripheral neuropathy. 10.Hypertension. 11.Gastroesophageal reflux disease. SOCIAL HISTORY: The patient is a resident in a prison. She does not smoke. She is a former smoker. She does not use alcohol or extracurricular drugs. ALLERGIES: THERE ARE NO DRUG ALLERGIES. OUTPATIENT MEDICATIONS: Prior to hospital admission: 1. Bumex 1 mg p.o. b.i.d. 2. BuSpar. 3. Colace. 4. Ferrous sulfate. Consultation Report [address] [place]. [address] NAME: SUZI CHOW : 41 STATUS : ADM IN PAT#: [id number] AGE: 70 ADM/REG DATE : 06/30/16 MR#: [id number] REPORT SERV DATE: 07/01/16 DICTATED BY: DATE: REPORT STATUS : Draft TRANSCRIBED BY: KELVIN DATE: 07/01/16 5. Cassel. 6. Humalog. 7. Melatonin. 8. Metoprolol succinate. 9. Pantoprazole. 10.MiraLAX. 11.Rythmol 300 mg p.o. q.8 hours. 12.Sertraline. 13.Warfarin. REVIEW OF SYSTEMS: Unobtainable due to the patient's mental status. PHYSICAL EXAMINATION: VITAL SIGNS: The patient was febrile overnight with a temperature of 100.4. Blood pressures range between 99 and 128/49 to 57, heart rates have been between 83 and 128 beats per minute. Respiratory rate is 26. Oxygen saturations are 94% on BiPAP. GENERAL: Ms Chow is a chronically ill-appearing 70-year-old female. She is in mild distress. She is on BiPAP. HEART: Irregular, tachycardic. Soft, S1, S2. I could not appreciate murmurs, rubs, or gallops. LUNGS: There is inspiratory and expiratory wheezes and coarse breath sounds in all lung roa. ABDOMEN: Soft on the left side. There is pitting edema on the right pannus. The abdominal aorta is nonpalpable. I could not auscultate any renal bruits. EXTREMITIES: Warm. There is marked pitting edema in the bilateral lower extremities. MUSCULOSKELETAL: No clubbing or cyanosis of the digits. NEUROLOGICAL: Mental status could not be performed. The patient is able to follow commands and she is cooperative. DATA: Chest x-ray demonstrated jose francisco bilateral pulmonary edema, somewhat clearing since admission chest x-ray. Sodium 143, potassium 3.3. BUN 14 and creatinine 0.71. Magnesium 1.5. Hemoglobin 8.8, hematocrit 28.6, troponin 0.03. BNP is 1791. IMPRESSION, REPORT, AND PLAN: 1. Pulmonary edema likely secondary to diastolic heart failure. 2. Volume overload. 3. Known history of right heart failure via echocardiogram, 06/22/2016. 4. Atrial fibrillation with rapid ventricular response. 5. Anemia. 6. Morbid obesity. 7. Respiratory failure. 8. Hypertension. Consultation Report [address] [place]. [address] NAME: SUZI CHOW : 41 STATUS : ADM IN PAT#: [id number] AGE: 70 ADM/REG DATE : 06/30/16 MR#: [id number] REPORT SERV DATE: 07/01/16 DICTATED BY: DATE: REPORT STATUS : Draft TRANSCRIBED BY: MODNikolai DATE: 07/01/16 9. Obstructive sleep apnea. RECOMMENDATIONS: 1. I agree with diuresis as already initiated and will continue till the patient is euvolemic. 2. Start amiodarone drip and tell the patient can take p.o. propafenone and metoprolol. 3. Fluid restrict to less than 2 L per day. 4. Sodium restrict to less than 2 g per day. 5. We would continue warfarin for a goal INR of 2-3. The patient is able to take p.o. 6. We will consider renal artery ultrasound when the patient is euvolemic. It has been my pleasure to participate in the care of this patient. LAURA/KELVIN Radha Vargas M.D. / [id number] CC: Chelo Brown M.D. Andrew H Fowler, M.D.
--- NOTE | ~2016-06-30 | DS ---
Discharge Summary [address] [place]. [address] NAME: SUZI STARKEY : 41 STATUS : DIS IN PAT#: [id number] AGE: 70 ADM/REG DATE : 06/30/16 MR#: [id number] REPORT SERV DATE: 08/15/16 DICTATED BY: VISHAL ORTEGA DATE: 08/14/16 REPORT STATUS : Draft TRANSCRIBED BY: KELVIN DATE: 08/14/16 Data Collection from hospitalization DISCHARGE DIAGNOSES: 1. Respiratory failure/vent. 2. Congestive heart failure. 3. Hypotension - now off pressors. 4. ESBL. 5. Type 2 diabetes. 6. Hypertension. 7. Atrial fibrillation/atrial flutter, status post ablation in 2010 and cardioversion in 2010. 8. Diastolic congestive heart failure. 9. Asthma. 10.Obstructive sleep apnea/obesity hypoventilation syndrome. 11.Anxiety disorder with panic attacks. 12.Stage 3 chronic kidney disease. 13.Gastroesophageal reflux disease. 14.Gait impairment. 15.Anemia secondary to chronic disease. 16.History of gout. 17.Arthritis. 18.Peripheral neuropathy. 19.Erosive gastritis. 20.Glaucoma and presbyopia. 21.Former smoker. CONSULTATIONS: 1. Angel Miller M.D. 2. Radha Vargas M.D. PROCEDURES PERFORMED: 1. Intubation, 07/02/2016. 2. Venous Doppler ultrasound of the bilateral lower extremities. DISPOSITION: [facility]. HOSPITAL COURSE: This is a 71-year-old female who is a resident of [facility]. She was transferred to the [facility] Emergency Room on the day of this admission complaining of difficulty breathing, shortness of breath, and low saturation. She has a history of chronic diastolic congestive heart failure, obstructive sleep apnea/obesity hypoventilation syndrome requiring a CPAP, diabetes, and chronic atrial fibrillation. She is on anticoagulation with Coumadin. She was admitted to the hospital at this time for further evaluation and treatment. Upon admission, white blood cell count was 11.5. Chest x-ray revealed diffuse pulmonary edema. The patient was felt to have an acute exacerbation of diastolic congestive heart failure. She has pulmonary edema likely secondary to congestive heart failure exacerbation, Discharge Summary [address] [address] NAME: SUZI STARKEY : 41 STATUS : DIS IN PAT#: [id number] AGE: 70 ADM/REG DATE : 06/30/16 MR#: [id number] REPORT SERV DATE: 08/15/16 DICTATED BY: VISHAL ORTEGA DATE: 08/14/16 REPORT STATUS : Draft TRANSCRIBED BY: KELVIN DATE: 08/14/16 acute on chronic respiratory failure was felt secondary to congestive heart failure acute exacerbation, pulmonary edema, and hypoxemia. She was placed on BiPAP. We will continue to monitor O2 saturation. The patient did not tolerate being off BiPAP and easily desaturate. Breathing treatments were going to be continued as well bronchodilator protocol. IV Bumex was going to be continued. Blood cultures were going to be obtained. Potassium supplementation was given. Mag sulfate replacement was also provided. Phosphorus replacement was also given. Amiodarone drip had been started. Coumadin was held for now. Hemoglobin A1c was going to be obtained. Levaquin was going to be given. She was changed to IV Protonix, Zoloft was held. The patient was seen by Dr. Angel Miller. Chest x-rays had revealed evidence of significant congestive heart failure. The patient normally uses CPAP at home, that had been placed on BiPAP here for hypoxemia. After being on BiPAP at 55%, she was awake and responsive. Chest x-ray showed evidence of congestive heart failure. BiPAP was increased. Diuresis had been recommended as well as Precedex to control her anxiety. The following day, she remained on BiPAP. She was seen by Dr. Radha Vargas regarding pulmonary edema. Overnight, the patient went into atrial fibrillation with rapid ventricular response with heart rates in the low 120s. She did not receive her regularly scheduled propafenone and metoprolol due to inability to take oral medications. Diuresis continued. Amiodarone drip was started. She was placed on fluid restriction and sodium restriction. Enoxaparin will be discontinued when INR level is greater than 2. NG tube was in place. On the , she was felt to have hypoxic respiratory failure and required intubation. A PICC line was inserted. The next day, crackles in the left lung. She has 2+ pitting bilateral edema. Diuresis continued. She had been found to have a urinary tract infection/sepsis. Antibiotics were continued. A venous Doppler ultrasound of the bilateral lower extremities was performed. There was obstruction of the common femoral vein secondary to body habitus, edema, and bandaging. On 07/04/2016, she was still sedated on the ventilator. White count was 19.5. Bumex drip had been stopped. INR level was 2.4. She was in no acute distress. She was evaluated by Physical Therapy. She was seen by Dr. Mikhail Bernstein. She was evaluated by Physical Therapy. She was felt to have acute kidney injury. Creatinine level was 1.64. There were no plans to escalate care. She was now DNR code status. She was in a normal sinus rhythm. She had 2+ pitting edema of the bilateral lower extremities. The next day, she was still intubated and sedated. Creatinine level was 1.96. She had mild edema. She was evaluated by Physical Therapy. On the , she had developed atrial fibrillation and then went back into a sinus rhythm. Her prognosis was felt to be poor. Comfort care had been started. Supportive care continued as well as antibiotics. On the , she was in atrial fibrillation with rapid ventricular response. Procalcitonin level had decreased to 13.1. Antibiotics were continued as well as amiodarone and beta-janine. Creatinine level increased to 2.29. She appeared critically ill. She was still sedated on the ventilator. 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 Palliative/hospice care was recommended. White blood cell count was 22. She was felt to have a dismal prognosis for long-term recovery. She was not a candidate for hemodialysis. Therefore, I felt that she was not a candidate for trach/PEG tube. From the standpoint of Dr. Coronel, comfort care was felt to be most appropriate if she continued to decline. She was on Merrem and vancomycin. On 07/09/2016, she was still sedated and intubated. She was in atrial fibrillation - mostly sinus rhythm. INR level was 1.8. Serum creatinine was 3.03. White count was 19.6. She was not responsive. There was no evidence of pain or discomfort at this time. The patient's Discharge Summary [address] [place]. [address] NAME: SUZI STARKEYU : 41 STATUS : DIS IN PAT#: [id number] AGE: 70 ADM/REG DATE : 06/30/16 MR#: [id number] REPORT SERV DATE: 08/15/16 DICTATED BY: VISHAL ORTEGA DATE: 08/14/16 REPORT STATUS : Draft TRANSCRIBED BY: KELVIN DATE: 08/14/16 daughter understood her prognosis. Plans to transition to comfort care were discussed. The patient was already on DNR code status. Her condition continued to decline. Later that afternoon, she was found to be without blood pressure, pulse, or respirations. She was pronounced at 5:20 p.m. and released to the above-mentioned home. Information collected by: Carolina Yan I submit the above information as my discharge summary. SELENE/KELVIN Vishal Ortega M.D. / [id number] CC: Chelo Brown M.D. Mandeep Grewal, M.D. Lisa Gail Carkner, M.D. William Drinnon, M.D.
--- NOTE | ~2016-06-30 | OP ---
Record Of Operation [facility] [address] [place] [address] NAME: SUZI STARKEY : 41 STATUS : ADM IN [facility]#: [id number] AGE: 70 ADM/REG DATE : 06/30/16 MR#: [id number] REPORT SERV DATE: 07/02/16 DICTATED BY: ROMEO MILLER DATE: 07/02/16 REPORT STATUS : Draft TRANSCRIBED BY: MODL DATE: 07/02/16 DATE OF PROCEDURE: 07/02/2016 TIME: 0230 hours. PROCEDURE: Intubation. INDICATION: Hypoxic respiratory failure. DESCRIPTION OF PROCEDURE: The patient was pre-oxygenated 100% oxygen and monitored by blood pressure, EKG, and pulse oximetry. Etomidate 20 mg IV given. A #7.5 endotracheal tube placed under direct laryngoscopic vision to 22 cm. Tube seen to enter between cords. Confirmed by end-tidal CO2 monitor. Good breath sounds bilaterally. x ray ordered. RP/KELVIN Romeo Miller M.D. / [id number] CC: Chelo Brown M.D.
--- NOTE | ~2016-06-30 | CN ---
Consultation Report [facility] [address] [place]. [address] NAME: SUZI STARKEY : 41 STATUS : ADM IN [facility]#: [id number] AGE: 70 ADM/REG DATE : 06/30/16 MR#: [id number] REPORT SERV DATE: 07/01/16 DICTATED BY: ROMEO MILLER DATE: 06/30/16 REPORT STATUS : Draft TRANSCRIBED BY: MODNikolai DATE: 06/30/16 CONSULTATION DATE OF CONSULTATION: TIME: 2330 hours. Seen in the ER bed 10 at the request of Dr. Singh. HISTORY OF PRESENT ILLNESS: The patient is a 70-year-old white female, resident of a care home, with underlying history of diastolic heart failure, presents tonight with increasing dyspnea, shortness of breath, and decreasing saturation. Chest x-ray revealed evidence of significant congestive heart failure. The patient normally uses CPAP at home, but was placed on BiPAP here for hypoxemia. After being on BiPAP at 55%, pH is 7.499, pCO2 is 42, pO2 is 59. The patient is awake and responsive. PAST MEDICAL HISTORY: Significant for recent ORIF in June, fracture below total hip arthroplasty, history of right total hip arthroplasty, chronic atrial fibrillation, obstructive sleep apnea, obesity hypoventilation syndrome, diabetes mellitus, hypertension, chronic kidney disease stage 3, peripheral neuropathy, erosive gastritis, panic attacks. She is status post trimalleolar fracture repair of her ankle on the right, cardiac ablation, hypoplastic L1. She is status post left knee surgery, cholecystectomy, hysterectomy, carpal tunnel release. ALLERGIES: NO KNOWN ALLERGIES. HOME MEDICATIONS: Include Tylenol, Lantus 52 units, Prinivil, Toprol-XL, Prilosec, Klor-Con, Rythmol, Zoloft, EZ-Iron, and Coumadin. PHYSICAL EXAMINATION: GENERAL: The patient is awake, alert, somewhat short of breath. VITAL SIGNS: Blood pressure 141/51, pulse 108 and regular, saturation 95, temperature of 100.3. HEENT: Head is normocephalic. Sclerae and conjunctivae are clear. NECK: Supple. Some JVD noted. CHEST: Bilateral crackles, rhonchi. CARDIAC: S1, S2. Regular. Soft ejection murmur heard over the base. ABDOMEN: Obese, nontender. No masses or organomegaly. EXTREMITIES: 2+ to 3+ edema in the lower extremities. NEUROLOGIC: Grossly intact. IMAGING: Chest x-ray shows evidence of congestive heart failure. PLAN: BiPAP increased to 16/10 cm, rate of 12 to 14, and recommend diuresis. The patient Consultation Report [address] [place]. [address] NAME: SUZI STARKEY : 41 STATUS : ADM IN [facility]#: [id number] AGE: 70 ADM/REG DATE : 06/30/16 MR#: [id number] REPORT SERV DATE: 07/01/16 DICTATED BY: ROMEO MILLER DATE: 06/30/16 REPORT STATUS : Draft TRANSCRIBED BY: KELVIN DATE: 06/30/16 placed on Precedex to control anxiety. RP/KELVIN Romeo Miller M.D. / [id number] CC: Rui An M.D.
--- NOTE | ~2016-06-30 | HP ---
History And Physical [address] [place]. [address] NAME: SUZI STARKEY : 41 STATUS : ADM IN [facility]#: [id number] AGE: 70 ADM/REG DATE : 06/30/16 MR#: [id number] REPORT SERV DATE: 07/02/16 DICTATED BY: VISHAL ORTEGA DATE: 07/01/16 REPORT STATUS : Draft TRANSCRIBED BY: MODNikolai DATE: 07/01/16 DATE OF ADMISSION: 06/30/2016 CHIEF COMPLAINT: Shortness of breath and difficulty breathing. HISTORY OF PRESENT ILLNESS: The patient is a 70 years old female, who is a resident of [facility], was transferred to [facility] Emergency Room on 06/30/2016 for complaint of difficulty breathing, shortness of breath, and low saturation. The patient with history of chronic diastolic congestive heart failure, obstructive sleep apnea/obesity hypoventilation syndrome requiring a CPAP, diabetes, and chronic atrial fibrillation, on anticoagulation with Coumadin. The patient is sedated and unable to obtain complete medical, family, and social history. Most information obtained from reviewing medical records in the chart, as well as [facility] electronic medical records, nursing staff and the patient's daughter, Atif Puri, by phone. ALLERGIES: NO KNOWN DRUG ALLERGIES. MEDICATIONS: Currently, the patient is on Bumex 2 mg IV q.8 hours, buspirone 5 mg p.o. t.i.d., Bumex 1 mg p.o. b.i.d., docusate sodium 100 mg b.i.d., ferrous sulfate 300 mg p.o. b.i.d., DuoNeb inhalation q.4 h., metoprolol succinate 25 mg daily, nitroglycerin q.6 hours, Protonix 40 mg q.a.c., Rythmol 300 mg p.o. t.i.d., Zoloft 200 mg p.o. daily, warfarin 8 mg p.o. daily. Home medication regimen includes Bumex 1 mg p.o. b.i.d.; BuSpar 5 mg three times a day; Colace 100 mg twice a day; iron sulfate 325 mg b.i.d.; hydrocodone 5/325 one tab every 6 hours p.r.n.; sliding-scale insulin; melatonin 3 mg p.o. at bedtime; metoprolol succinate 25 mg extended release tab daily; Protonix 40 mg daily; MiraLAX powder 17 g p.o. every morning; Rythmol 300 mg tab every 8 hours; Zoloft 100 mg tab, takes 2 mg p.o. every morning; warfarin 8 mg daily. PAST MEDICAL HISTORY: 1. History positive for hypertension, atrial fibrillation and atrial flutter with cardiac ablation in 10/21/2010, had a cardioversion on 10/27/2010. The patient on Rythmol and followed by Dr. Banda, EP and Dr. Talat Lazo, dopeman. 2. Diastolic congestive heart failure. 3. Asthma. 4. Obstructive sleep apnea/obesity hypoventilation syndrome, on CPAP. 5. Anxiety disorder with panic attacks. 6. Chronic kidney disease, stage 3. 7. GERD. 8. Type 2 diabetes. 9. Gait impairment. 10.Anemia secondary to chronic disease. 11.History of gout. History And Physical [address] [address] NAME: SUZI STARKEY : 41 STATUS : ADM IN [facility]#: [id number] AGE: 70 ADM/REG DATE : 06/30/16 MR#: [id number] REPORT SERV DATE: 07/02/16 DICTATED BY: VISHAL ORTEGA DATE: 07/01/16 REPORT STATUS : Draft TRANSCRIBED BY: KELVIN DATE: 07/01/16 12.Arthritis. 13.Peripheral neuropathy. 14.Erosive gastritis. 15.History of glaucoma and presbyopia. PAST SURGICAL HISTORY: 1. Positive for hysterectomy, tubal ligation, vaginal biopsy. 2. She had back surgery with kyphoplasty in 2009. 3. ORIF of the right hip, early this month. 4. Left knee replacement. 5. Right ankle repair. 6. Cholecystectomy. 7. Carpal tunnel release. SOCIAL HISTORY: The patient is a resident of [facility]. She has no history of alcohol or illicit drug use. Patient is a former smoker, quit in 1981. FAMILY HISTORY: Unable to obtain due to the patient's mental status. REVIEW OF SYSTEMS: Limited due to mental status. Obtained few from nursing staff reports, the patient does desaturates or become hypoxic when off her BiPAP. She has been running her respiratory rate an average of 30, at times to 40. Heart rate had been better since an amiodarone drip. The patient remained on Precedex drip and has been very drowsy even to take any of her p.o. medication. PHYSICAL EXAMINATION: VITAL SIGNS: BP of 140/60, pulse of 86, respiratory rate 26, temperature 100.2 to 100.4, and O2 saturation 95% on BiPAP at 70% FiO2. Weight of 138.48 kg. Telemetry reveals the patient is atrial fibrillation with a heart rate of 79. GENERAL: The patient is an elderly female, very drowsy, responding to pain, did attempt to open eyes very briefly with moderate stimulation. HEENT: Oral mucosa moist. EYES: Nonicteric bilaterally. NECK: Obese. No JVD noted. CHEST: No deformity noted. LUNGS: Diffuse fine rhonchi with decreased breath sound bilaterally. No wheezing. CARDIOVASCULAR: Irregular rate and rhythm with a heart rate of 79, no murmurs. Telemetry revealed the patient is still in atrial fibrillation. ABDOMEN: Obese, soft, nontender. Positive bowel sounds noted. GENITOURINARY: Watkins in use with clear yellow urine in bag to gravity. EXTREMITIES: Bilateral upper extremity with old ecchymosis. Bilateral upper extremity with peripheral IV, intact without redness or edema. Bilateral lower extremities with 3 to 4+ edema with right greater than left. Difficult to palpate pulse secondary to edema. IV, on amiodarone drip, Precedex drip, and completing magnesium IV drip. LABORATORY STUDY: Labs on 06/30 revealed sodium of 140, potassium 3.1, chloride 97, CO2 of History And Physical [address] [place]. [address] NAME: SUZI STARKEY : 41 STATUS : ADM IN PAT#: [id number] AGE: 70 ADM/REG DATE : 06/30/16 MR#: [id number] REPORT SERV DATE: 07/02/16 DICTATED BY: VISHAL ORTEGA DATE: 07/01/16 REPORT STATUS : Draft TRANSCRIBED BY: MODL DATE: 07/01/16 34, BUN 13, creatinine 0.73, GFR of 82, glucose of 174, magnesium of 1.6. WBC of 11.5, hemoglobin 10.3, hematocrit 33.6, platelet of 223. Labs this morning, 325, with sodium 143, potassium of 3.4, chloride 102, CO2 of 33, BUN 14, creatinine of 0.71, glucose of 175, and GFR of 85. Magnesium of 1.5, phosphorus of 2.1. WBC of 10, hemoglobin 8.8, hematocrit 28.6. INR 2.0, PT 22.6, PTT 41.2. Repeat potassium after replace per electrolyte protocol was 3.6 and repeat phosphorus after electrolyte protocol was 2.8. Pending repeat of magnesium, receiving replacement per protocol. Chest x-ray on 06/30/2016 revealed diffuse pulmonary edema. Echocardiogram on 06/22/2016 revealed the patient with normal left ventricular size with preserved EF of 55%, moderate diastolic dysfunction, moderately enlarged RV with moderate hypocontractility, moderate biatrial enlargement, aortic valve sclerosis without stenosis, trace mitral and mild tricuspid regurgitation and mild pulmonary hypertension. ASSESSMENT: 1. Acute on chronic respiratory failure secondary to congestive heart failure acute exacerbation, pulmonary edema, and hypoxemia. 2. Pulmonary edema, likely secondary to congestive heart failure exacerbation. 3. Diastolic congestive heart failure, acute exacerbation. 4. Fever of unknown origin. 5. Hypokalemia. 6. Hypomagnesemia. 7. Hypophosphoremia. 8. Atrial fibrillation, on anticoagulation therapy. 9. Anemia secondary to chronic disease. 10.History of anxiety and depression. 11.Type 2 diabetes. 12.History of obesity hypoventilation syndrome, obstructive sleep apnea, on CPAP. 13.Morbid obesity. 14.Bilateral lower extremity edema. 15.Respiratory alkalosis, likely secondary to pulmonary edema. 16.Encephalopathy, likely secondary to Precedex. PLAN: 1. Appreciate consult from critical care and cardiology services. The patient is currently on BiPAP. Continue to monitor O2 saturation. The patient with O2 saturation at 70% FiO2. The patient does not tolerate being off BiPAP, easily desaturates. Continue breathing treatment. Continue bronchodilator protocol. Continue IV Bumex. The patient is at risk for worsening respiratory status, may require intubation. Discussed code status with the patient's daughter by phone, witnessed by the patient's nurse. The patient code status is addressed. The patient is Full Code. POLST form filed in chart. 2. Monitor the patient's weight and strict I and O patient very sedated likely and does not tolerate being off BiPAP, so we will maintain fluid restriction as ordered by Pulmonology to 800 mL to 1000 mL, but doubt that. Right now, the patient unable to eat or drink at all. We will plan to check urinalysis and if positive, we will need to obtain culture and sensitivity. The patient with low-grade fever, unsure if have History And Physical [address] [address] NAME: SUZI STARKEY : 41 STATUS : ADM IN [facility]#: [id number] AGE: 70 ADM/REG DATE : 06/30/16 MR#: [id number] REPORT SERV DATE: 07/02/16 DICTATED BY: VISHAL ORTEGA DATE: 07/01/16 REPORT STATUS : Draft TRANSCRIBED BY: KELVIN DATE: 07/01/16 underlying pneumonia. WBC is within normal limit on admission and improved even on the second day. We will hold off right now on any antibiotic therapy. We will obtain blood culture x2 if not done in the ER. We will follow up chest x-ray. The patient is pending chest x-ray in a.m. Admission chest x-ray just revealed diffuse pulmonary edema. The patient is at risk for sepsis. 3. The patient with low potassium on admission, placed on electrolyte protocol. Potassium had been replaced. This morning, her potassium was 3.3, but increased to 3.6 after completion of electrolyte replacement. 4. The patient also with low magnesium on admission, received Mag sulfate replacement, pending repeat mag on Mag level. 5. The patient also with low phosphorus, received replacement. On repeat, increased to 2.8. We will need to follow up labs in a.m. The patient is scheduled for this in a.m. 6. The patient with history of atrial fibrillation, on Rythmol. However, the patient is too sedated to take her regular home p.o. medication regimen. The patient was placed by dopeman on amiodarone drip. Her heart rate is much better, still atrial fibrillation, but appears to have some sinus rhythm. We will continue to monitor telemetry. We will need to address with dopeman regarding the patient's schedule Rythmol. Likely, we will need to discontinue this, given the patient not able to take p.o. medications at this time and on amiodarone. We will monitor blood pressure closely while the patient is on Rythmol. The patient is at risk for hypotension. 7. We will hold Coumadin for now, given the patient's sedated state. We will change to Levaquin subcu 1 mg/kg q.12 hours for the meantime and we will plan to bridge back to Coumadin once the patient is more alert and able to take p.o. medications. The patient is at risk for CVA. The patient's admission baseline INR was 2.0, PTT was 41.2. 8. We will continue to monitor blood sugar. The patient likely will be on n.p.o., though has not been eating at all, does not tolerate being off BiPAP. So for now, we will just monitor blood sugar. Check the patient's hemoglobin A1c with a.m. labs just to see the patient's diabetes control. The patient is at risk for hypoglycemia, given she has had decreased p.o. intake. 9. The patient with bilateral lower extremity edema, likely secondary to ongoing CHF. Currently, on Bumex IV scheduled q.8 hours. We will discontinue Bumex p.o. schedule, given that she is already on IV. We will keep bilateral lower extremity elevated. The patient's with admission baseline BNP of 1771.9 and this morning, it was 1791.4. The patient is at risk for further hypoxia and also at risk for skin breakdown. 10.We will also obtain TSH level with a.m. labs. 11.We will discontinue other p.o. medications at this time. The patient is on Colace schedule, but we will have Dulcolax p.r.n. suppository if needed. We will discontinue iron supplement for now and we will just watch H and H. If needed, we will give blood transfusion. The patient is at risk for further hypoxia. 12.We will change Protonix from p.o. to IV and we will hold off Zoloft for now. The patient is on Precedex for her anxiety. So, we will resume scheduled medications when the patient is able to take p.o. Also, we will hold off on metoprolol p.o. 13.Plan for discharge will be to transfer back to [facility] once the patient's medical condition improves and we will refer to PT prior to transfer back to [place]. DICTATED BY: Tamica Lerma NP History And Physical [address] [address] NAME: SUZI STARKEY : 41 STATUS : ADM IN PAT#: [id number] AGE: 70 ADM/REG DATE : 06/30/16 MR#: [id number] REPORT SERV DATE: 07/02/16 DICTATED BY: VISHAL ORTEGA DATE: 07/01/16 REPORT STATUS : Draft TRANSCRIBED BY: MODL DATE: 07/01/16 CLP/MODL Vishal Ortega M.D. / [id number] CC: Chelo Mckay M.D.
[2016-06-30 21:07] LABS: BE (BASE EXCESS) 8.2 MEQ/L (0 +/- 2.5); INSTRUMENT SERIAL # 8087; PCO2 (CO2 TENSION) 40 MMHG (35-45); PO2 (O2 TENSION) 72 MMHG (79-93); pH 7.52 (7.37-7.43)
[2016-06-30 21:08] LABS: ALLENS TEST Pos; CARBOXYHEMOGLOBIN 2.4 % (0-3); DEVICE NRB; HCO3 (ACTUAL BICARBONATE) 31.7 MEQ/L (23-27); HEMOBLOGIN CONTENT 10.2 G/DL (12-16); METHEMOGLOBIN 0.2 % (0-3); O2 CONTENT 13.4 VOL% (18-24); OPERATOR ID 334499; SAMPLE Arterial
[2016-06-30 22:37] LABS: BASOPHILS 0.1 %; BASOPHILS ABSOLUTE 0.01 10/3/uL (0.0-0.16); EOSINOPHILS 0.8 %; EOSINOPHILS ABSOLUTE 0.09 10/3/uL (0.0-0.53); HEMOGLOBIN 10.3 g/dL (12.0-16.0); IMMATURE GRANULOCYTES ABSOLUTE 0.12 10/3/uL (0.0-0.11); LYMPHOCYTES 6.3 %; LYMPHOCYTES ABSOLUTE 0.73 10/3/uL (0.67-4.30); MEAN CORPUS HGB CONC 30.7 g/dL (32.0-36.0); MEAN CORPUSCULAR VOLUME 91.3 fL (80-100); MEAN PLATELET VOLUME 9.6 fL (9.2-13.0); MONOCYTES 9.2 %; MONOCYTES ABSOLUTE 1.06 10/3/uL (0.21-1.20); NEUTROPHILS 82.6 %; RED CELL COUNT 3.68 10/6/uL (4.0-5.6)
[2016-06-30 22:38] LABS: ER CBC TAT 0 Hrs 09 Mins; HEMATOCRIT 33.6 % (36.0-48.0); MANUAL DIFF NO %; PLATELET COUNT 223 10/3/uL (150-400); WHITE BLOOD CELLS 11.5 10/3/uL (4.5-10.5)
[2016-06-30 22:41] LABS: INFLUENZA A SCREEN NEGATIVE (NEGATIVE); INFLUENZA B SCREEN NEGATIVE (NEGATIVE)
[2016-06-30 22:44] LABS: PARTIAL THROMBO TIME 41.2 SEC (22.5-37.2); PROTIME (NOT ORD) 22.6 SEC (12.0-14.5)
[2016-06-30 22:49] LABS: BUN (BLOOD UREA NITROGEN) 13 MG/DL (6-23); CALCIUM, SERUM 8.6 MG/DL (8.5-10.4); CHEST PAIN PROFILE TAT 0 Hrs 20 Mins; CHLORIDE, SERUM 97 MMOL/L (96-112); CO2 (CARBON DIOXIDE) 34 MMOL/L (24-34); CREATININE 0.73 MG/DL (0.55-1.02); GFR AFRICAN AMERICAN 95 ML/MIN (>=60); GFR NON AFRICAN AMERICAN 82 ML/MIN (>=60); GLUCOSE, SERUM 174 MG/DL (60-99); POTASSIUM, SERUM 3.1 MMOL/L (3.5-5.3); SODIUM, SERUM 140 MMOL/L (135-148); TROPONIN I 0.03 NG/ML (<0.05)
[2016-06-30 22:50] LABS: LACTATE 1.5 MMOL/L (0.3-2.4)
[2016-06-30 23:24] LABS: ALLENS TEST Pos; BE (BASE EXCESS) 8.6 MEQ/L (0 +/- 2.5); BIPAP 16/5 cm.H2O; CARBOXYHEMOGLOBIN 2.3 % (0-3); HCO3 (ACTUAL BICARBONATE) 32.6 MEQ/L (23-27); HEMOBLOGIN CONTENT 10.3 G/DL (12-16); INSTRUMENT SERIAL # 8087; METHEMOGLOBIN 0.2 % (0-3); O2 CONTENT 12.8 VOL% (18-24); OPERATOR ID 334499; PCO2 (CO2 TENSION) 43 MMHG (35-45); PO2 (O2 TENSION) 59 MMHG (79-93); SAMPLE Arterial
[2016-06-30 23:24] LABS: PROCALCITONIN 0.16 ng/mL (<0.5)
[2016-06-30] MEDS ORDERED: RYTHMOL300 MG PO (23:28)
[2016-06-30] MEDS ORDERED: MELA3 PO (23:28)
[2016-06-30] MEDS ORDERED: BUSPAR5 PO (23:29)
[2016-06-30] MEDS ORDERED: BUM1 PO (23:29)
[2016-06-30] MEDS ORDERED: PROTONIX PO (23:30)
[2016-06-30] MEDS ORDERED: FERROUS SULF325 M1 PO (23:30)
[2016-06-30] MEDS ORDERED: DSS PO (23:31)
[2016-06-30] MEDS ORDERED: TOPXL25 PO (23:31)
[2016-06-30] MEDS ORDERED: MIRALAX POWDER1 PKT PO (23:32)
[2016-06-30] MEDS ORDERED: ZOL100 PO (23:32)
[2016-06-30] MEDS ORDERED: HUMALOGPEN SC (23:39)
[2016-06-30] MEDS ORDERED: COUMADIN4 MG PO (23:41)
[2016-06-30] MEDS ORDERED: NORCO1 TA1 PO (23:43)
[2016-07-01 03:31] LABS: BASOPHILS 0.1 %; BASOPHILS ABSOLUTE 0.01 10/3/uL (0.0-0.16); EOSINOPHILS 0.6 %; EOSINOPHILS ABSOLUTE 0.06 10/3/uL (0.0-0.53); HEMOGLOBIN 8.8 g/dL (12.0-16.0); LYMPHOCYTES 6.3 %; LYMPHOCYTES ABSOLUTE 0.63 10/3/uL (0.67-4.30); MEAN CORPUS HGB CONC 30.8 g/dL (32.0-36.0); MEAN CORPUSCULAR HEMOGLOB 28.3 pg (26.0-34.0); MEAN PLATELET VOLUME 8.9 fL (9.2-13.0); MONOCYTES 8.8 %; MONOCYTES ABSOLUTE 0.88 10/3/uL (0.21-1.20); NEUTROPHILS 83.2 %; NEUTROPHILS ABSOLUTE 8.33 10/3/uL (2.02-8.40); PLATELET COUNT 184 10/3/uL (150-400); RBC DISTRIBUTION WIDTH 18.8 % (12.0-16.0); RED CELL COUNT 3.11 10/6/uL (4.0-5.6)
[2016-07-01 03:38] LABS: HEMATOCRIT 28.6 % (36.0-48.0); MANUAL DIFF NO %
[2016-07-01 03:48] LABS: BUN (BLOOD UREA NITROGEN) 14 MG/DL (6-23); CALCIUM, SERUM 8.2 MG/DL (8.5-10.4); CHLORIDE, SERUM 102 MMOL/L (96-112); CO2 (CARBON DIOXIDE) 33 MMOL/L (24-34); CREATININE 0.71 MG/DL (0.55-1.02); GFR AFRICAN AMERICAN 99 ML/MIN (>=60); GFR NON AFRICAN AMERICAN 85 ML/MIN (>=60); GLUCOSE, SERUM 175 MG/DL (60-99); PHOSPHORUS, SERUM 2.1 MG/DL (2.5-4.5); POTASSIUM, SERUM 3.3 MMOL/L (3.5-5.3); SODIUM, SERUM 143 MMOL/L (135-148)
[2016-07-01 07:31] LABS: INTERNATIONAL NORMAL RATI 2.2 UNITS (-); PROTIME (NOT ORD) 24.3 SEC (12.0-14.5)
[2016-07-01 08:14] LABS: PROCALCITONIN 0.09 ng/mL (<0.5)
[2016-07-01 09:13] LABS: ALLENS TEST Pos; BE (BASE EXCESS) 9.1 MEQ/L (0 +/- 2.5); BIPAP 16/10 cm.H2O; CARBOXYHEMOGLOBIN 0.3 % (0-3); HCO3 (ACTUAL BICARBONATE) 33.1 MEQ/L (23-27); HEMOBLOGIN CONTENT 9.8 G/DL (12-16); INSTRUMENT SERIAL # 11843; METHEMOGLOBIN 0.4 % (0-3); O2 CONTENT 12.7 VOL% (18-24); OPERATOR ID 13715; PCO2 (CO2 TENSION) 43 MMHG (35-45); PO2 (O2 TENSION) 63 MMHG (79-93); SAMPLE Arterial; pH 7.51 (7.37-7.43)
[2016-07-01 12:16] LABS: PHOSPHORUS, SERUM 2.8 MG/DL (2.5-4.5); POTASSIUM, SERUM 3.6 MMOL/L (3.5-5.3)
[2016-07-01 18:26] LABS: ASCORBIC ACID (UR NOT ORDER) NEG (NEG); BILIRUBIN, URINE NEGATIVE (NEG); KETONE, URINE NEGATIVE (NEG); LEUKOCYTE ESTERASE(NOT OR LARGE (NEG); WBC (NOT ORDERED) (RFLEX) 41 (0-5)
[2016-07-01 22:42] LABS: PHOSPHORUS, SERUM 3.1 MG/DL (2.5-4.5); POTASSIUM, SERUM 3.5 MMOL/L (3.5-5.3)
[2016-07-02 03:33] LABS: ALLENS TEST Pos; BE (BASE EXCESS) 3.6 MEQ/L (0 +/- 2.5); CARBOXYHEMOGLOBIN 0.8 % (0-3); HCO3 (ACTUAL BICARBONATE) 28.8 MEQ/L (23-27); HEMOBLOGIN CONTENT 9.7 G/DL (12-16); INSTRUMENT SERIAL # 11843; METHEMOGLOBIN 0.6 % (0-3); MODE CMV; OPERATOR ID 16503; PCO2 (CO2 TENSION) 47 MMHG (35-45); PO2 (O2 TENSION) 89 MMHG (79-93); SAMPLE Arterial; TIDAL VOLUME 450 ML; pH 7.41 (7.37-7.43)
[2016-07-02 04:23] LABS: BASOPHILS 0.1 %; BASOPHILS ABSOLUTE 0.01 10/3/uL (0.0-0.16); EOSINOPHILS 0.7 %; EOSINOPHILS ABSOLUTE 0.08 10/3/uL (0.0-0.53); HEMATOCRIT 28.7 % (36.0-48.0); IMMATURE GRANULOCYTES 0.4 %; IMMATURE GRANULOCYTES ABSOLUTE 0.05 10/3/uL (0.0-0.11); LYMPHOCYTES 6.6 %; LYMPHOCYTES ABSOLUTE 0.76 10/3/uL (0.67-4.30); MEAN CORPUS HGB CONC 31.4 g/dL (32.0-36.0); MEAN CORPUSCULAR HEMOGLOB 28.7 pg (26.0-34.0); MEAN CORPUSCULAR VOLUME 91.4 fL (80-100); MEAN PLATELET VOLUME 9.1 fL (9.2-13.0); MONOCYTES 6.1 %; NEUTROPHILS 86.1 %; NEUTROPHILS ABSOLUTE 9.89 10/3/uL (2.02-8.40); PLATELET COUNT 180 10/3/uL (150-400); RBC DISTRIBUTION WIDTH 19.1 % (12.0-16.0); RED CELL COUNT 3.14 10/6/uL (4.0-5.6); WHITE BLOOD CELLS 11.5 10/3/uL (4.5-10.5)
[2016-07-02 04:27] LABS: MANUAL DIFF NO %
[2016-07-02 04:29] LABS: INTERNATIONAL NORMAL RATI 2.4 UNITS (-); PROTIME (NOT ORD) 25.8 SEC (12.0-14.5)
[2016-07-02 04:52] LABS: BUN (BLOOD UREA NITROGEN) 17 MG/DL (6-23); CALCIUM, SERUM 8.1 MG/DL (8.5-10.4); CHLORIDE, SERUM 100 MMOL/L (96-112); CO2 (CARBON DIOXIDE) 32 MMOL/L (24-34); CREATININE 0.84 MG/DL (0.55-1.02); GFR AFRICAN AMERICAN 80 ML/MIN (>=60); GFR NON AFRICAN AMERICAN 69 ML/MIN (>=60); GLUCOSE, SERUM 192 MG/DL (60-99); POTASSIUM, SERUM 3.2 MMOL/L (3.5-5.3); SODIUM, SERUM 142 MMOL/L (135-148)
[2016-07-02 10:30] LABS: INSTRUMENT SERIAL # 11843; PCO2 (CO2 TENSION) 48 MMHG (35-45); PO2 (O2 TENSION) 159 MMHG (79-93); pH 7.44 (7.37-7.43)
[2016-07-02 10:31] LABS: ALLENS TEST Pos; BE (BASE EXCESS) 6.7 MEQ/L (0 +/- 2.5); CARBOXYHEMOGLOBIN 0.2 % (0-3); HCO3 (ACTUAL BICARBONATE) 31.8 MEQ/L (23-27); METHEMOGLOBIN 0.5 % (0-3); MODE CMV; O2 CONTENT 15.5 VOL% (18-24); SAMPLE Arterial; TIDAL VOLUME 450 ML
[2016-07-03 03:28] LABS: HEMOGLOBIN 10.2 g/dL (12.0-16.0); MEAN CORPUSCULAR HEMOGLOB 28.5 pg (26.0-34.0); MEAN CORPUSCULAR VOLUME 91.9 fL (80-100); MEAN PLATELET VOLUME 9.2 fL (9.2-13.0); RBC DISTRIBUTION WIDTH 18.9 % (12.0-16.0); RED CELL COUNT 3.58 10/6/uL (4.0-5.6)
[2016-07-03 03:32] LABS: HEMATOCRIT 32.9 % (36.0-48.0); MANUAL DIFF YES %; PLATELET COUNT 272 10/3/uL (150-400)
[2016-07-03 03:36] LABS: INTERNATIONAL NORMAL RATI 2.5 UNITS (-); PROTIME (NOT ORD) 26.4 SEC (12.0-14.5)
[2016-07-03 03:50] LABS: BUN (BLOOD UREA NITROGEN) 17 MG/DL (6-23); CALCIUM, SERUM 7.9 MG/DL (8.5-10.4); CHLORIDE, SERUM 98 MMOL/L (96-112); CO2 (CARBON DIOXIDE) 32 MMOL/L (24-34); CREATININE 0.75 MG/DL (0.55-1.02); GFR AFRICAN AMERICAN 92 ML/MIN (>=60); GFR NON AFRICAN AMERICAN 80 ML/MIN (>=60); POTASSIUM, SERUM 3.4 MMOL/L (3.5-5.3); SODIUM, SERUM 140 MMOL/L (135-148)
[2016-07-03 03:51] LABS: GLUCOSE, SERUM 153 MG/DL (60-99)
[2016-07-03 04:01] LABS: BAND NEUTROPHILS 1 %; BASOPHILS 1 %; BASOPHILS ABSOLUTE (CALC) 0.13 10/3/uL (0.0-0.16); EOSINOPHILS 1 %; EOSINOPHILS ABSOLUTE (CALC) 0.13 10/3/uL (0.0-0.53); LYMPHOCYTES 4 %; LYMPHOCYTES ABSOLUTE (CALC) 0.52 10/3/uL (0.67-4.30); MONOCYTES 1 %; MONOCYTES ABSOLUTE (CALC) 0.13 10/3/uL (0.21-1.20); NEUTROPHILS ABSOLUTE (CALC) 12.09 10/3/uL (2.02-8.40); SEGMENTED NEUTROPHIL (0) 92 %; TOTAL NUCLEATED CELLS 100
[2016-07-03 04:02] LABS: ANISOCYTOSIS 1+ (5-10/OIF) (0-5/OIF); PLATELET ESTIMATE ADQ (ADEQUATE)
[2016-07-03 04:04] LABS: HYPOCHROMIA 1+ (3-10/OIF) (0-2/OIF)
[2016-07-03 08:58] LABS: BE (BASE EXCESS) 7.2 MEQ/L (0 +/- 2.5); CARBOXYHEMOGLOBIN 0.3 % (0-3); HEMOBLOGIN CONTENT 10.3 G/DL (12-16); INSTRUMENT SERIAL # 11843; METHEMOGLOBIN 0.5 % (0-3); MODE CMV; OPERATOR ID 35798; PCO2 (CO2 TENSION) 46 MMHG (35-45); PO2 (O2 TENSION) 60 MMHG (79-93); SAMPLE Arterial; pH 7.46 (7.37-7.43)
[2016-07-03 08:59] LABS: ALLENS TEST Pos; TIDAL VOLUME 450 ML
[2016-07-03 10:34] LABS: BUN (BLOOD UREA NITROGEN) 15 MG/DL (6-23); CALCIUM, SERUM 8.2 MG/DL (8.5-10.4); CHLORIDE, SERUM 102 MMOL/L (96-112); CO2 (CARBON DIOXIDE) 30 MMOL/L (24-34); GFR AFRICAN AMERICAN 85 ML/MIN (>=60); GFR NON AFRICAN AMERICAN 74 ML/MIN (>=60); GLUCOSE, SERUM 157 MG/DL (60-99); PHOSPHORUS, SERUM 2.8 MG/DL (2.5-4.5); SGPT(ALT) 11 U/L (5-65); SODIUM, SERUM 141 MMOL/L (135-148); TOTAL PROTEIN 5.9 G/DL (6.0-8.5)
[2016-07-03 10:35] LABS: ALBUMIN 1.8 G/DL (3.5-5.0); ALKALINE PHOSPHATASE 143 U/L (45-117); DIRECT BILIRUBIN 0.9 MG/DL (0.0-0.4); INDIRECT BILIRUBIN(NOT ORDER) 0.5 MG/DL (0.1-0.9); POTASSIUM, SERUM 3.7 MMOL/L (3.5-5.3); SGOT(AST) 30 U/L (5-40); TOTAL BILIRUBIN 1.4 MG/DL (0-1.2)
[2016-07-03 11:50] LABS: ALLENS TEST Pos; BE (BASE EXCESS) 6.6 MEQ/L (0 +/- 2.5); CARBOXYHEMOGLOBIN 0.3 % (0-3); HEMOBLOGIN CONTENT 10.8 G/DL (12-16); INSTRUMENT SERIAL # 11843; METHEMOGLOBIN 0.6 % (0-3); MODE PCV 30; OPERATOR ID 35798; PCO2 (CO2 TENSION) 44 MMHG (35-45); PO2 (O2 TENSION) 68 MMHG (79-93); SAMPLE Arterial; pH 7.47 (7.37-7.43)
[2016-07-03 13:18] LABS: CK-MB 0.5 NG/ML; CPK 27 U/L (0-200); POTASSIUM, SERUM 3.3 MMOL/L (3.5-5.3); TROPONIN I 0.03 NG/ML (<0.05)
[2016-07-03 15:16] LABS: BASOPHILS 0.1 %; BASOPHILS ABSOLUTE 0.01 10/3/uL (0.0-0.16); EOSINOPHILS 1.4 %; EOSINOPHILS ABSOLUTE 0.15 10/3/uL (0.0-0.53); IMMATURE GRANULOCYTES 0.5 %; IMMATURE GRANULOCYTES ABSOLUTE 0.05 10/3/uL (0.0-0.11); LYMPHOCYTES 2.5 %; LYMPHOCYTES ABSOLUTE 0.27 10/3/uL (0.67-4.30); MEAN CORPUS HGB CONC 30.3 g/dL (32.0-36.0); MEAN CORPUSCULAR HEMOGLOB 27.8 pg (26.0-34.0); MEAN CORPUSCULAR VOLUME 91.7 fL (80-100); MEAN PLATELET VOLUME 9.9 fL (9.2-13.0); MONOCYTES 2.4 %; MONOCYTES ABSOLUTE 0.26 10/3/uL (0.21-1.20); NEUTROPHILS 93.1 %; NEUTROPHILS ABSOLUTE 10.04 10/3/uL (2.02-8.40); PLATELET COUNT 255 10/3/uL (150-400); RBC DISTRIBUTION WIDTH 18.9 % (12.0-16.0); WHITE BLOOD CELLS 10.8 10/3/uL (4.5-10.5)
[2016-07-03 15:18] LABS: MANUAL DIFF NO %
[2016-07-03 15:52] LABS: ALBUMIN 1.7 G/DL (3.5-5.0); BUN (BLOOD UREA NITROGEN) 16 MG/DL (6-23); CALCIUM, SERUM 7.8 MG/DL (8.5-10.4); CHLORIDE, SERUM 100 MMOL/L (96-112); CO2 (CARBON DIOXIDE) 28 MMOL/L (24-34); CREATININE 0.87 MG/DL (0.55-1.02); GFR AFRICAN AMERICAN 77 ML/MIN (>=60); GFR NON AFRICAN AMERICAN 67 ML/MIN (>=60); GLUCOSE, SERUM 134 MG/DL (60-99); PHOSPHORUS, SERUM 2.3 MG/DL (2.5-4.5); SODIUM, SERUM 141 MMOL/L (135-148)
[2016-07-03 22:45] LABS: BUN (BLOOD UREA NITROGEN) 19 MG/DL (6-23); CALCIUM, SERUM 8.1 MG/DL (8.5-10.4); CHLORIDE, SERUM 97 MMOL/L (96-112); CO2 (CARBON DIOXIDE) 30 MMOL/L (24-34); CPK 36 U/L (0-200); CREATININE 1.24 MG/DL (0.55-1.02); GFR AFRICAN AMERICAN 50 ML/MIN (>=60); GFR NON AFRICAN AMERICAN 43 ML/MIN (>=60); SODIUM, SERUM 138 MMOL/L (135-148); TROPONIN I 0.03 NG/ML (<0.05)
[2016-07-03 22:48] LABS: ALBUMIN 2.5 G/DL (3.5-5.0); CK-MB 0.9 NG/ML; GLUCOSE, SERUM 180 MG/DL (60-99); PHOSPHORUS, SERUM 4.3 MG/DL (2.5-4.5); POTASSIUM, SERUM 4.1 MMOL/L (3.5-5.3)
[2016-07-04 04:19] LABS: INTERNATIONAL NORMAL RATI 2.4 UNITS (-); PROTIME (NOT ORD) 25.8 SEC (12.0-14.5)
[2016-07-04 04:22] LABS: BUN (BLOOD UREA NITROGEN) 20 MG/DL (6-23); CALCIUM, SERUM 8.1 MG/DL (8.5-10.4); CHLORIDE, SERUM 96 MMOL/L (96-112); CO2 (CARBON DIOXIDE) 28 MMOL/L (24-34); CREATININE 1.48 MG/DL (0.55-1.02); GFR AFRICAN AMERICAN 41 ML/MIN (>=60); GFR NON AFRICAN AMERICAN 35 ML/MIN (>=60); GLUCOSE, SERUM 202 MG/DL (60-99); POTASSIUM, SERUM 4.6 MMOL/L (3.5-5.3); SODIUM, SERUM 135 MMOL/L (135-148); TROPONIN I 0.04 NG/ML (<0.05)
[2016-07-04 04:23] LABS: HEMATOCRIT 32.4 % (36.0-48.0); HEMOGLOBIN 9.4 g/dL (12.0-16.0); MANUAL DIFF YES %; MEAN CORPUSCULAR HEMOGLOB 28.1 pg (26.0-34.0); MEAN PLATELET VOLUME 9.7 fL (9.2-13.0); PLATELET COUNT 252 10/3/uL (150-400); RBC DISTRIBUTION WIDTH 18.6 % (12.0-16.0); RED CELL COUNT 3.34 10/6/uL (4.0-5.6); WHITE BLOOD CELLS 19.5 10/3/uL (4.5-10.5)
[2016-07-04 04:39] LABS: ALBUMIN 3.2 G/DL (3.5-5.0); PHOSPHORUS, SERUM 5.5 MG/DL (2.5-4.5)
[2016-07-04 04:40] LABS: CK-MB 2.1 NG/ML; CPK 200 U/L (0-200)
[2016-07-04 04:55] LABS: ANISOCYTOSIS 1+ (5-10/OIF) (0-5/OIF); BAND NEUTROPHILS 2 %; LYMPHOCYTES 2 %; LYMPHOCYTES ABSOLUTE (CALC) 0.39 10/3/uL (0.67-4.30); MONOCYTES 8 %; MONOCYTES ABSOLUTE (CALC) 1.56 10/3/uL (0.21-1.20); NEUTROPHILS ABSOLUTE (CALC) 17.55 10/3/uL (2.02-8.40); PLATELET ESTIMATE ADQ (ADEQUATE); SEGMENTED NEUTROPHIL (0) 88 %; TOTAL NUCLEATED CELLS 100
[2016-07-04 04:56] LABS: SPHEROCYTES OCC (0-2/OIF)
[2016-07-04 10:42] LABS: ALBUMIN 2.7 G/DL (3.5-5.0); BUN (BLOOD UREA NITROGEN) 25 MG/DL (6-23); CHLORIDE, SERUM 98 MMOL/L (96-112); CO2 (CARBON DIOXIDE) 27 MMOL/L (24-34); CREATININE 1.64 MG/DL (0.55-1.02); GFR AFRICAN AMERICAN 36 ML/MIN (>=60); GFR NON AFRICAN AMERICAN 31 ML/MIN (>=60); GLUCOSE, SERUM 203 MG/DL (60-99); PHOSPHORUS, SERUM 5.3 MG/DL (2.5-4.5); POTASSIUM, SERUM 4.7 MMOL/L (3.5-5.3); SODIUM, SERUM 134 MMOL/L (135-148)
[2016-07-04 10:48] LABS: PROCALCITONIN 22.61 ng/mL (<0.5)
[2016-07-04 12:17] LABS: ALLENS TEST Pos; BE (BASE EXCESS) -2.5 MEQ/L (0 +/- 2.5); CARBOXYHEMOGLOBIN 0.3 % (0-3); HEMOBLOGIN CONTENT 9.8 G/DL (12-16); INSTRUMENT SERIAL # 11843; METHEMOGLOBIN 0.6 % (0-3); MODE PCV 30; O2 CONTENT 14.1 VOL% (18-24); OPERATOR ID 23712; PCO2 (CO2 TENSION) 76 MMHG (35-45); PO2 (O2 TENSION) 222 MMHG (79-93); SAMPLE Arterial; pH 7.17 (7.37-7.43)
[2016-07-04 13:11] LABS: BE (BASE EXCESS) -4.6 MEQ/L (0 +/- 2.5); CARBOXYHEMOGLOBIN 0.2 % (0-3); INSTRUMENT SERIAL # 11843; METHEMOGLOBIN 0.7 % (0-3); OPERATOR ID 23712; PCO2 (CO2 TENSION) 74 MMHG (35-45); PO2 (O2 TENSION) 156 MMHG (79-93); SAMPLE Arterial; pH 7.15 (7.37-7.43)
[2016-07-04 13:12] LABS: ALLENS TEST Pos; MODE PCV
[2016-07-04 16:14] LABS: CALCIUM, SERUM 7.6 MG/DL (8.5-10.4); CHLORIDE, SERUM 95 MMOL/L (96-112); CO2 (CARBON DIOXIDE) 26 MMOL/L (24-34); GFR AFRICAN AMERICAN 32 ML/MIN (>=60); GFR NON AFRICAN AMERICAN 28 ML/MIN (>=60); GLUCOSE, SERUM 169 MG/DL (60-99); PHOSPHORUS, SERUM 5.3 MG/DL (2.5-4.5); POTASSIUM, SERUM 4.4 MMOL/L (3.5-5.3); SODIUM, SERUM 134 MMOL/L (135-148)
[2016-07-04 16:15] LABS: ALBUMIN 3.4 G/DL (3.5-5.0); BUN (BLOOD UREA NITROGEN) 29 MG/DL (6-23)
[2016-07-05 04:04] LABS: BASOPHILS 0.2 %; BASOPHILS ABSOLUTE 0.02 10/3/uL (0.0-0.16); EOSINOPHILS 0.5 %; EOSINOPHILS ABSOLUTE 0.05 10/3/uL (0.0-0.53); HEMOGLOBIN 8.2 g/dL (12.0-16.0); IMMATURE GRANULOCYTES 0.7 %; IMMATURE GRANULOCYTES ABSOLUTE 0.08 10/3/uL (0.0-0.11); LYMPHOCYTES 6.1 %; LYMPHOCYTES ABSOLUTE 0.68 10/3/uL (0.67-4.30); MEAN CORPUS HGB CONC 30.4 g/dL (32.0-36.0); MEAN CORPUSCULAR HEMOGLOB 28.5 pg (26.0-34.0); MEAN PLATELET VOLUME 9.4 fL (9.2-13.0); MONOCYTES 7.1 %; MONOCYTES ABSOLUTE 0.79 10/3/uL (0.21-1.20); NEUTROPHILS 85.4 %; NEUTROPHILS ABSOLUTE 9.44 10/3/uL (2.02-8.40); PLATELET COUNT 212 10/3/uL (150-400); RBC DISTRIBUTION WIDTH 18.3 % (12.0-16.0); RED CELL COUNT 2.88 10/6/uL (4.0-5.6)
[2016-07-05 04:11] LABS: INTERNATIONAL NORMAL RATI 2.5 UNITS (-); PROTIME (NOT ORD) 26.6 SEC (12.0-14.5)
[2016-07-05 04:12] LABS: MANUAL DIFF NO %; MEAN CORPUSCULAR VOLUME 93.8 fL (80-100); WHITE BLOOD CELLS 11.1 10/3/uL (4.5-10.5)
[2016-07-05 04:18] LABS: A/G RATIO 1.2 (0.7-1.9); ALBUMIN 3.5 G/DL (3.5-5.0); ALKALINE PHOSPHATASE 88 U/L (45-117); BUN (BLOOD UREA NITROGEN) 37 MG/DL (6-23); CALCIUM, SERUM 7.9 MG/DL (8.5-10.4); CHLORIDE, SERUM 94 MMOL/L (96-112); CO2 (CARBON DIOXIDE) 27 MMOL/L (24-34); CREATININE 1.96 MG/DL (0.55-1.02); DIRECT BILIRUBIN 0.7 MG/DL (0.0-0.4); GFR AFRICAN AMERICAN 29 ML/MIN (>=60); GFR NON AFRICAN AMERICAN 25 ML/MIN (>=60); GLUCOSE, SERUM 147 MG/DL (60-99); INDIRECT BILIRUBIN(NOT ORDER) 0.8 MG/DL (0.1-0.9); PHOSPHORUS, SERUM 5.7 MG/DL (2.5-4.5); POTASSIUM, SERUM 3.8 MMOL/L (3.5-5.3); SGOT(AST) 26 U/L (5-40); SGPT(ALT) 12 U/L (5-65); SODIUM, SERUM 134 MMOL/L (135-148); TOTAL BILIRUBIN 1.5 MG/DL (0-1.2); TOTAL PROTEIN 6.5 G/DL (6.0-8.5)
[2016-07-06 03:50] LABS: BASOPHILS 0.1 %; BASOPHILS ABSOLUTE 0.01 10/3/uL (0.0-0.16); EOSINOPHILS 1.1 %; HEMOGLOBIN 7.3 g/dL (12.0-16.0); IMMATURE GRANULOCYTES 0.5 %; IMMATURE GRANULOCYTES ABSOLUTE 0.04 10/3/uL (0.0-0.11); LYMPHOCYTES 4.8 %; LYMPHOCYTES ABSOLUTE 0.42 10/3/uL (0.67-4.30); MEAN CORPUS HGB CONC 30.7 g/dL (32.0-36.0); MEAN CORPUSCULAR HEMOGLOB 28.2 pg (26.0-34.0); MEAN CORPUSCULAR VOLUME 91.9 fL (80-100); MEAN PLATELET VOLUME 9.6 fL (9.2-13.0); MONOCYTES 7.7 %; MONOCYTES ABSOLUTE 0.67 10/3/uL (0.21-1.20); NEUTROPHILS 85.8 %; NEUTROPHILS ABSOLUTE 7.51 10/3/uL (2.02-8.40); PLATELET COUNT 190 10/3/uL (150-400); RBC DISTRIBUTION WIDTH 18.3 % (12.0-16.0); RED CELL COUNT 2.59 10/6/uL (4.0-5.6); WHITE BLOOD CELLS 8.8 10/3/uL (4.5-10.5)
[2016-07-06 03:53] LABS: HEMATOCRIT 23.8 % (36.0-48.0); MANUAL DIFF NO %
[2016-07-06 03:58] LABS: INTERNATIONAL NORMAL RATI 2.4 UNITS (-); PROTIME (NOT ORD) 26.3 SEC (12.0-14.5)
[2016-07-06 04:12] LABS: BUN (BLOOD UREA NITROGEN) 48 MG/DL (6-23); CALCIUM, SERUM 7.9 MG/DL (8.5-10.4); CHLORIDE, SERUM 91 MMOL/L (96-112); CO2 (CARBON DIOXIDE) 27 MMOL/L (24-34); CREATININE 2.09 MG/DL (0.55-1.02); GFR AFRICAN AMERICAN 27 ML/MIN (>=60); GFR NON AFRICAN AMERICAN 23 ML/MIN (>=60); GLUCOSE, SERUM 136 MG/DL (60-99); PHOSPHORUS, SERUM 6.3 MG/DL (2.5-4.5); POTASSIUM, SERUM 3.2 MMOL/L (3.5-5.3); SODIUM, SERUM 133 MMOL/L (135-148)
[2016-07-06 05:43] LABS: ALLENS TEST Pos; BE (BASE EXCESS) 1.4 MEQ/L (0 +/- 2.5); CARBOXYHEMOGLOBIN 0.8 % (0-3); HCO3 (ACTUAL BICARBONATE) 28.3 MEQ/L (23-27); HEMOBLOGIN CONTENT 8.5 G/DL (12-16); INSTRUMENT SERIAL # 11843; METHEMOGLOBIN 0.5 % (0-3); MODE PCV; O2 CONTENT 11.1 VOL% (18-24); OPERATOR ID 13744; PCO2 (CO2 TENSION) 58 MMHG (35-45); PO2 (O2 TENSION) 75 MMHG (79-93); SAMPLE Arterial
[2016-07-06 06:48] LABS: PROCALCITONIN 19.44 ng/mL (<0.5)
[2016-07-07 04:24] LABS: BASOPHILS 0.2 %; BASOPHILS ABSOLUTE 0.02 10/3/uL (0.0-0.16); EOSINOPHILS 1.7 %; EOSINOPHILS ABSOLUTE 0.19 10/3/uL (0.0-0.53); HEMOGLOBIN 8.2 g/dL (12.0-16.0); IMMATURE GRANULOCYTES 1.4 %; IMMATURE GRANULOCYTES ABSOLUTE 0.15 10/3/uL (0.0-0.11); LYMPHOCYTES ABSOLUTE 0.44 10/3/uL (0.67-4.30); MEAN CORPUS HGB CONC 31.3 g/dL (32.0-36.0); MEAN CORPUSCULAR HEMOGLOB 28.6 pg (26.0-34.0); MEAN CORPUSCULAR VOLUME 91.3 fL (80-100); MEAN PLATELET VOLUME 9.7 fL (9.2-13.0); MONOCYTES 8.6 %; MONOCYTES ABSOLUTE 0.94 10/3/uL (0.21-1.20); NEUTROPHILS 84.1 %; NEUTROPHILS ABSOLUTE 9.17 10/3/uL (2.02-8.40); PLATELET COUNT 192 10/3/uL (150-400); RBC DISTRIBUTION WIDTH 18.3 % (12.0-16.0); RED CELL COUNT 2.87 10/6/uL (4.0-5.6); WHITE BLOOD CELLS 10.9 10/3/uL (4.5-10.5)
[2016-07-07 04:25] LABS: HEMATOCRIT 26.2 % (36.0-48.0); MANUAL DIFF NO %
[2016-07-07 04:32] LABS: INTERNATIONAL NORMAL RATI 2.4 UNITS (-); PARTIAL THROMBO TIME 38.6 SEC (22.5-37.2); PROTIME (NOT ORD) 25.7 SEC (12.0-14.5)
[2016-07-07 04:45] LABS: ALBUMIN 3.6 G/DL (3.5-5.0); CALCIUM, SERUM 7.8 MG/DL (8.5-10.4); CHLORIDE, SERUM 90 MMOL/L (96-112); CO2 (CARBON DIOXIDE) 29 MMOL/L (24-34); CREATININE 2.29 MG/DL (0.55-1.02); GFR AFRICAN AMERICAN 24 ML/MIN (>=60); GFR NON AFRICAN AMERICAN 21 ML/MIN (>=60); GLUCOSE, SERUM 114 MG/DL (60-99); PHOSPHORUS, SERUM 6.5 MG/DL (2.5-4.5); POTASSIUM, SERUM 3.2 MMOL/L (3.5-5.3); SODIUM, SERUM 129 MMOL/L (135-148)
[2016-07-07 04:54] LABS: BUN (BLOOD UREA NITROGEN) 53 MG/DL (6-23)
[2016-07-07 05:51] LABS: PROCALCITONIN 13.13 ng/mL (<0.5)
[2016-07-07 09:31] LABS: HEPATITIS C ANTIBODY NON-REACTIVE (NON-REACT)
[2016-07-07 09:32] LABS: HEPATITIS B CORE AB IGM NON-REACTIVE (NON-REAC)
[2016-07-07 09:33] LABS: HEP A ANTIBODY IGM NON-REACTIVE (NON-REACT)
[2016-07-07 09:48] LABS: HEPATITIS B SURFACE ANTIGEN NON-REACTIVE (NON-REACT)
[2016-07-08 03:10] LABS: BE (BASE EXCESS) -1.3 MEQ/L (0 +/- 2.5); CARBOXYHEMOGLOBIN 0.5 % (0-3); HCO3 (ACTUAL BICARBONATE) 29.1 MEQ/L (23-27); HEMOBLOGIN CONTENT 9.9 G/DL (12-16); INSTRUMENT SERIAL # 11843; METHEMOGLOBIN 0.7 % (0-3); MODE PCV+30; O2 CONTENT 13.1 VOL% (18-24); OPERATOR ID 32193; PCO2 (CO2 TENSION) 88 MMHG (35-45); PO2 (O2 TENSION) 86 MMHG (79-93); SAMPLE Arterial; pH 7.14 (7.37-7.43)
[2016-07-08 03:11] LABS: ALLENS TEST Pos
[2016-07-08 05:28] LABS: INTERNATIONAL NORMAL RATI 1.9 UNITS (-)
[2016-07-08 05:34] LABS: PROTIME (NOT ORD) 21.6 SEC (12.0-14.5)
[2016-07-08 05:48] LABS: HEMATOCRIT 28.8 % (36.0-48.0); HEMOGLOBIN 8.7 g/dL (12.0-16.0); MEAN CORPUS HGB CONC 30.2 g/dL (32.0-36.0); MEAN CORPUSCULAR HEMOGLOB 28.1 pg (26.0-34.0); MEAN CORPUSCULAR VOLUME 92.9 fL (80-100); RBC DISTRIBUTION WIDTH 18.1 % (12.0-16.0)
[2016-07-08 05:50] LABS: MANUAL DIFF YES %; PLATELET COUNT 367 10/3/uL (150-400)
[2016-07-08 05:53] LABS: A/G RATIO 1.1 (0.7-1.9); ALBUMIN 3.4 G/DL (3.5-5.0); CALCIUM, SERUM 8.2 MG/DL (8.5-10.4); CHLORIDE, SERUM 91 MMOL/L (96-112); CO2 (CARBON DIOXIDE) 26 MMOL/L (24-34); DIRECT BILIRUBIN 0.7 MG/DL (0.0-0.4); GLOBULIN 3.1 G/DL (2.5-4.1); GLUCOSE, SERUM 122 MG/DL (60-99); INDIRECT BILIRUBIN(NOT ORDER) 0.7 MG/DL (0.1-0.9); SGOT(AST) 58 U/L (5-40); SGPT(ALT) 12 U/L (5-65); SODIUM, SERUM 132 MMOL/L (135-148); TOTAL BILIRUBIN 1.4 MG/DL (0-1.2); TOTAL PROTEIN 6.5 G/DL (6.0-8.5)
[2016-07-08 06:05] LABS: ALKALINE PHOSPHATASE 116 U/L (45-117); BUN (BLOOD UREA NITROGEN) 64 MG/DL (6-23); CREATININE 2.83 MG/DL (0.55-1.02); GFR AFRICAN AMERICAN 19 ML/MIN (>=60); GFR NON AFRICAN AMERICAN 16 ML/MIN (>=60); PHOSPHORUS, SERUM 8.1 MG/DL (2.5-4.5); POTASSIUM, SERUM 4.1 MMOL/L (3.5-5.3)
[2016-07-08 07:05] LABS: BAND NEUTROPHILS 8 %; EOSINOPHILS 2 %; EOSINOPHILS ABSOLUTE (CALC) 0.44 10/3/uL (0.0-0.53); IMMATURE GRANS ABSOLUTE (CALC) 1.76 10/3/uL (0.0-0.11); LYMPHOCYTES 3 %; LYMPHOCYTES ABSOLUTE (CALC) 0.66 10/3/uL (0.67-4.30); METAMYELOCYTES 5 %; MONOCYTES 9 %; MONOCYTES ABSOLUTE (CALC) 1.98 10/3/uL (0.21-1.20); MYELOCYTES 3 %; NEUTROPHILS ABSOLUTE (CALC) 17.16 10/3/uL (2.02-8.40); SEGMENTED NEUTROPHIL (0) 70 %; TOTAL NUCLEATED CELLS 100
[2016-07-08 07:06] LABS: ANISOCYTOSIS 1+ (5-10/OIF) (0-5/OIF); HELMET CELLS OCC (0-2/OIF); PLATELET ESTIMATE ADQ (ADEQUATE); POLYCHROMASIA 1+ (2-5/OIF) (0-1/OIF); TEARDROP SHAPED RBCS OCC (0-2/OIF); TOXIC GRANULATION 1+; VACUOLATED NEUTROPHILES OCC
[2016-07-08 10:39] LABS: PROCALCITONIN 8.26 ng/mL (<0.5)
[2016-07-09 04:11] LABS: INTERNATIONAL NORMAL RATI 1.8 UNITS (-); PROTIME (NOT ORD) 20.6 SEC (12.0-14.5)
[2016-07-09 04:13] LABS: HEMATOCRIT 26.6 % (36.0-48.0); HEMOGLOBIN 8.3 g/dL (12.0-16.0); MANUAL DIFF YES %; MEAN CORPUS HGB CONC 31.2 g/dL (32.0-36.0); MEAN CORPUSCULAR VOLUME 89.9 fL (80-100); MEAN PLATELET VOLUME 9.4 fL (9.2-13.0); NUCLEATED RED BLOOD CELLS 0.1 /100WBC (0-0); PLATELET COUNT 317 10/3/uL (150-400); RED CELL COUNT 2.96 10/6/uL (4.0-5.6); WHITE BLOOD CELLS 19.6 10/3/uL (4.5-10.5)
[2016-07-09 04:17] LABS: ALBUMIN 3.2 G/DL (3.5-5.0); CALCIUM, SERUM 8.1 MG/DL (8.5-10.4); CHLORIDE, SERUM 90 MMOL/L (96-112); CO2 (CARBON DIOXIDE) 26 MMOL/L (24-34); CREATININE 3.03 MG/DL (0.55-1.02); GFR AFRICAN AMERICAN 17 ML/MIN (>=60); GFR NON AFRICAN AMERICAN 15 ML/MIN (>=60); GLUCOSE, SERUM 134 MG/DL (60-99); PHOSPHORUS, SERUM 8.3 MG/DL (2.5-4.5); POTASSIUM, SERUM 3.7 MMOL/L (3.5-5.3); SODIUM, SERUM 133 MMOL/L (135-148)
[2016-07-09 04:18] LABS: BUN (BLOOD UREA NITROGEN) 81 MG/DL (6-23)
[2016-07-09 06:08] LABS: ANISOCYTOSIS 1+ (5-10/OIF) (0-5/OIF); BAND NEUTROPHILS 10 %; BASOPHILS 1 %; EOSINOPHILS 1 %; HELMET CELLS OCC (0-2/OIF); IMMATURE GRANS ABSOLUTE (CALC) 0.98 10/3/uL (0.0-0.11); LYMPHOCYTES 3 %; LYMPHOCYTES ABSOLUTE (CALC) 0.59 10/3/uL (0.67-4.30); METAMYELOCYTES 3 %; MONOCYTES 7 %; MONOCYTES ABSOLUTE (CALC) 1.37 10/3/uL (0.21-1.20); MYELOCYTES 2 %; NEUTROPHILS ABSOLUTE (CALC) 16.27 10/3/uL (2.02-8.40); PLATELET ESTIMATE ADQ (ADEQUATE); SEGMENTED NEUTROPHIL (0) 73 %; TOTAL NUCLEATED CELLS 100
[2016-07-09 06:09] LABS: HYPOCHROMIA 1+ (3-10/OIF) (0-2/OIF); POLYCHROMASIA 1+ (2-5/OIF) (0-1/OIF); TEARDROP SHAPED RBCS OCC (0-2/OIF); TOXIC GRANULATION 1+; VACUOLATED NEUTROPHILES OCC
== END 2016-07-09 20:01 | disposition expired | DRG 291 ==
LOC: ER 22:27 → CVICU 23:49
PROVIDERS: Emergency Medicine; Family Medicine; Internal Medicine; Internal Medicine Critical Care Medicine; Internal Medicine Interventional Cardiology; Internal Medicine Nephrology; Internal Medicine Pulmonary Disease
PROC: 5A1955Z Respiratory Ventilation, Greater than 96 Consecutive Hours (ICD-10-PCS; principal; 2016-07-02)
PROC: 0BH17EZ Insertion of Endotracheal Airway into Trachea, Via Natural or Artificial Opening (ICD-10-PCS; 2016-07-02)
PROC: 02HV33Z Insertion of Infusion Device into Superior Vena Cava, Percutaneous Approach (ICD-10-PCS; 2016-07-02)
PROC: 4A02X4A Measurement of Cardiac Electrical Activity, Guidance, External Approach (ICD-10-PCS; 2016-07-02)
PROC: 02HV33Z Insertion of Infusion Device into Superior Vena Cava, Percutaneous Approach (ICD-10-PCS; 2016-07-04)
PROC: 4A02X4A Measurement of Cardiac Electrical Activity, Guidance, External Approach (ICD-10-PCS; 2016-07-04)
DX: I13.0 Hypertensive heart and chronic kidney disease with heart failure and stage 1 through stage 4 chronic kidney disease, or unspecified chronic kidney disease (principal); J96.21 Acute and chronic respiratory failure with hypoxia; A41.51 Sepsis due to Escherichia coli [E. coli]; G92 Toxic encephalopathy; J18.9 Pneumonia, unspecified organism; E87.3 Alkalosis; E11.22 Type 2 diabetes mellitus with diabetic chronic kidney disease; N18.3 Chronic kidney disease, stage 3 (moderate); J96.22 Acute and chronic respiratory failure with hypercapnia; I50.33 Acute on chronic diastolic (congestive) heart failure; I48.92 Unspecified atrial flutter; E87.1 Hypo-osmolality and hyponatremia; Z68.42 Body mass index [BMI] 45.0-49.9, adult; N39.0 Urinary tract infection, site not specified; E11.42 Type 2 diabetes mellitus with diabetic polyneuropathy; E66.01 Morbid (severe) obesity due to excess calories; I48.2 Chronic atrial fibrillation; J45.909 Unspecified asthma, uncomplicated; G47.33 Obstructive sleep apnea (adult) (pediatric); F41.9 Anxiety disorder, unspecified; I12.9 Hypertensive chronic kidney disease with stage 1 through stage 4 chronic kidney disease, or unspecified chronic kidney disease; D63.1 Anemia in chronic kidney disease; Z79.899 Other long term (current) drug therapy; Z79.4 Long term (current) use of insulin; Z79.01 Long term (current) use of anticoagulants; E87.6 Hypokalemia; E83.42 Hypomagnesemia; F32.9 Major depressive disorder, single episode, unspecified; B96.20 Unspecified Escherichia coli [E. coli] as the cause of diseases classified elsewhere; Z66 Do not resuscitate
CPT/HCPCS: 31720; 36569; 36600; 71010; 74000; 80048; 80053; 80069; 80074; 80076; 80202; 81001; 82248; 82330; 82533; 82550; 82553; 82803; 82805; 82947; 82962; 83036; 83605; 83735; 83880; 84100; 84132; 84145; 84295; 84443; 84484; 85014; 85025; 85610; 85730; 87040; 87070; 87077; 87086; 87186; 87205; 87804; 92950; 93005; 93970; 94002; 94003; 94640; 94660; 94770; 96374; 96375; 97162-GP; 99291; A9270-GY; C1751; C9113; G8978-CN-GP; G8979-CL-GP; J0153; J0282; J1120; J1160; J1205; J1450; J1720; J2185; J2370; J2543; J3370; P9047